=== PATIENT | female | born 1970 | race African-American/Black ===

== ENCOUNTER 2016-05-31 23:54 | Inpatient (IN) | payer OTHER ==
[~2016-05-31] VITALS: Ht 160 cm; Wt 76.1 kg
[~2016-05-31 23:54] MED LIST: ADVAIR HFA120 INHAL1 IH; ADVAIR HFA120 INHALA IH; AMOX TR-K CLV1 EAC3 PO; APRESOLINE25 MG PO; APRESOLINE50 MG PO; ASPIR 8181 M1 PO; ASPIRIN81 M2 PO; ATIVAN1 MG PO; AUGMENTIN500 MG PO; AUGMENTIN875 MG PO; AZITHROMYCIN250 MG1 PO; AZOR 5/20 MG1 TABLET PO; BACTRIM,SEPT1 TABLE1 PO; BACTRIM,SEPT1 TABLET PO; BENADRYL50 MG PO; BENICAR20 MG PO; CALCIUM CARB1 TABLET PO; CARAFATE1 GM PO; CARDURA4 MG PO; CARDURA8 MG PO; CATAPRES0.2 MG PO; CATAPRES0.3 MG PO; CEFUROXIME500 MG PO; CIPRO500 MG PO; CLARITIN,ALAVAR10 MG PO; CLINDAMYCIN HC300 MG PO; CLONIDINE HCL0.1 MG PO; CLONIDINE HCL0.2 MG PO; CLONIDINE HCL0.3 MG PO; COZAAR100 MG PO; CYANOCOBALAM1000 MCG PO; DELTASONE20 M1 PO; DILAUDID2 MG PO; DIPHENHYDRAMINE25 M2 PO; DIPHENHYDRAMINE50 M1 PO; DOXAZOSIN MESYLA8 MG PO; DOXYCYCLINE HY100 M3 PO; DOXYCYCLINE HY100 MG PO; FAMOTIDINE10 M1 PO; FIORICET,ESG1 TABLET PO; FLEXERIL5 MG PO; FLORASTOR250 MG PO; FLUCONAZOLE100 MG PO; FOLIC ACID1 MG PO; FOSRENOL1000 MG PO; GABAPENTIN100 MG PO; GUAIFENESI100 MG/5 M PO; HYDRALAZINE HC100 MG PO; HYDRALAZINE HCL50 MG PO; ISENTRESS400 MG PO; KALETRA 200/501 TAB PO; LABETALOL HCL100 MG PO; LABETALOL HCL200 MG PO; LEVAQUIN500 MG PO; LEVOFLOXACIN500 MG PO; LO-DOSE ASPIRIN81 M1 PO; LOPRESSOR HC1 TABLE2 PO; LOPRESSOR100 M1 PO; LORATADINE10 M2 PO; LOSARTAN POTAS100 MG PO; LOW DOSE ASPIRI81 M1 PO; MEDROL DOSEPAK4 MG PO; MEGACE40 MG PO; MEGESTROL ACETA40 MG PO; MYCOSTATIN 100,60 ML PO; NIFEDICAL XL60 MG PO; NIFEDIPINE ER30 MG PO; NIFEDIPINE ER60 MG PO; NORVIR100 M1 PO; NORVIR100 MG PO; OXYCODONE HCL5 MG PO; OXYCODONE-APAP1 EACH PO; OXYCONTIN15 MG PO; PAIN RELIEF650 MG PO; PANTOPRAZOLE SO40 MG PO; PERCOCET 10/1 TABLET PO; PERCOCET 5/31 TABLET PO; PREDNISONE10 MG PO; PREDNISONE20 MG PO; PREDNISONE50 MG PO; PREZISTA800 MG PO; PROAIR HFA8.5 GM IH; PROCARDIA XL60 MG PO; PROTONIX40 MG PO; PROVENTIL,2.5 MG/3 M IH; REGLAN10 MG PO; RENVELA2.4 GM PO; RENVELA800 MG PO; SENSIPAR90 MG PO; SILDENAFIL20 MG PO; SIMVASTATIN20 MG PO; SPIRIVA RESPIMAT4 GM IH; SUCRALFATE1 GM PO; SUCRALFATE1 GM/10 ML PO; SULFAMETHOXAZO1 EAC4 PO; TEMAZEPAM15 MG PO; TIVICAY50 MG PO; TORADOL10 MG PO; TRAMADOL HCL50 MG PO; TUSSIN100 MG/5 M PO; ULTRAM50 MG PO; VANCOMYCIN HCL1 GM IV; VENTOLIN HFA18 GM IH; VITAMIN B122500 MCG PO; ZOCOR20 MG PO; ZOFRAN4 MG PO; [UNRECOGNIZED DRUG - OTHER] PO
[2016-06-01 01:06] LABS: EOSINOPHIL (%) 0.1 % (0-5); HEMATOCRIT 22.7 % (36.0-46.0); IMMATURE GRANULOCYTE (%) 0.5 % (0.0-0.7); IMMATURE GRANULOCYTE COUNT 0.5 K/uL; MCH 31.1 PG (29.0-34.0); MCHC 32.6 G/DL (30.0-36.0); MCV 95.4 FL (83-99); MEAN PLAT.VOLUME 9.9 uM^3 (9.5-12.4); MONOCYTE (%) 5.7 % (3-12); MONOCYTE COUNT 0.6 K/uL (0-0.8); NEUTROPHIL (%) 83.8 % (45-76); NEUTROPHIL COUNT 8.8 K/uL (1.8-6.4); PLATELET COUNT 176 K/uL (156-360); RBC DIS.WIDTH-SD 62.1 % (39-53); RED BLOOD COUNT 2.38 M/uL (3.80-5.20); WHITE BLOOD COUNT 10.5 K/uL (4.1-10.2)
[2016-06-01 01:14] LABS: CHLORIDE 96 mEq/L (99-109); SODIUM 131 mEq/L (136-147)
[2016-06-01 01:17] LABS: ANION GAP 17 MEQ/L (2-14)
[2016-06-01 01:19] LABS: GFR ESTIMATE (CALCULATED) 8 mL/min/
[2016-06-01 01:20] LABS: UREA NITROGEN (BUN) 97 mg/dL (9-23)
[2016-06-01 01:22] LABS: GLUCOSE 60 mg/dL (70-99)
[2016-06-01 02:00] LABS: INFLUENZA A VIRAL ANTIGEN NEGATIVE; INFLUENZA B VIRAL ANTIGEN NEGATIVE
[2016-06-01 03:15] LABS: POINT-OF-CARE METER ID UU13113702
[2016-06-01 03:26] LABS: TOTAL BILIRUBIN 0.3 mg/dL (0.0-1.0)
[2016-06-01 03:27] LABS: ALKALINE PHOSPHATASE 94 IU/L (3-129)
[2016-06-01 04:08] VITALS: BP 150/90
[2016-06-01 07:00] VITALS: BP 149/79
[2016-06-01 11:47] VITALS: BP 157/75
[2016-06-01 12:16] LABS: ANION GAP 19 MEQ/L (2-14); CHLORIDE 92 MEQ/L (99-109); GFR ESTIMATE (CALCULATED) 8 mL/min/; GLUCOSE 71 mg/dL (70-99); POTASSIUM 5.7 MEQ/L (3.7-5.4); SAMPLE HEMOLYSIS CHECK 0; SAMPLE ICTERIC CHECK 0; SAMPLE LIPEMIA CHECK 0; SODIUM 131 MEQ/L (136-147); UREA NITROGEN (BUN) 99 mg/dL (9-23)
[2016-06-01 15:21] VITALS: BP 140/80
[2016-06-01 15:37] LABS: BASE EXCESS -1.6 mEq/L (-3 to +3); BICARBONATE 22.7 mEq/L (22-26); CARBOXY HGB 2.8 % (0-5); COMMENTS - BLOOD GASES NAC+; DEVICE NC; METHEMOGLOBIN 1.9 % (0-1.5); O2 FLOW 4 L/MIN; PCO2 35 mm Hg (35-45); PO2 106 mm Hg (80-100); SITE RR; TOTAL RESP RATE 23 resp/min; pH 7.42 (7.35-7.45)
[2016-06-02] VITALS (8 sets, daily range): BP systolic 111–186; BP diastolic 53–100
[2016-06-02 03:08] LABS: POINT-OF-CARE USER ID 603211116
[2016-06-02 03:56] LABS: CHLORIDE 93 mEq/L (99-109); POTASSIUM 5.6 mEq/L (3.7-5.4); SODIUM 130 mEq/L (136-147)
[2016-06-02 03:57] LABS: HEMATOCRIT 20.6 % (36.0-46.0); MCH 30.6 PG (29.0-34.0); MCHC 32.5 G/DL (30.0-36.0); MCV 94.1 FL (83-99); MEAN PLAT.VOLUME 9.9 uM^3 (9.5-12.4); PLATELET COUNT 146 K/uL (156-360); RBC DIS.WIDTH-CV 18.6 % (11.8-14.6); RBC DIS.WIDTH-SD 58.9 % (39-53); RED BLOOD COUNT 2.19 M/uL (3.80-5.20); WHITE BLOOD COUNT 11.2 K/uL (4.1-10.2)
[2016-06-02 03:58] LABS: GLUCOSE 66 mg/dL (70-99)
[2016-06-02 04:00] LABS: ANION GAP 20 MEQ/L (2-14)
[2016-06-02 04:02] LABS: GFR ESTIMATE (CALCULATED) 6 mL/min/
[2016-06-02 04:15] LABS: UREA NITROGEN (BUN) 117 mg/dL (9-23)
[2016-06-02 04:37] LABS: TROP-I INTERPRETATION INDETERMINATE; TROPONIN-I 0.43 ng/mL (0.0-0.30)
[2016-06-02 07:58] LABS: BASE EXCESS -2.5 mEq/L (-3 to +3); BICARBONATE 22.5 mEq/L (22-26); PCO2 39 mm Hg (35-45); PO2 74 mm Hg (80-100); pH 7.37 (7.35-7.45)
[2016-06-02 07:59] LABS: COMMENTS - BLOOD GASES +C; DEVICE NC; O2 FLOW 2 L/MIN; SITE RR +A; TOTAL RESP RATE 24 resp/min
[2016-06-02 08:01] LABS: CARBOXY HGB 4.1 % (0-5); METHEMOGLOBIN 1.4 % (0-1.5)
[2016-06-02 09:14] LABS: IRON 13 MCG/DL (35-150)
[2016-06-02 12:31] LABS: POINT-OF-CARE METER ID UU13113681; POINT-OF-CARE USER ID DROKMM72
[2016-06-02 13:01] LABS: TROP-I INTERPRETATION INDETERMINATE; TROPONIN-I 0.46 ng/mL (0.0-0.30)
[2016-06-02 18:39] LABS: HEMATOCRIT 28.7 % (36.0-46.0)
[2016-06-02 18:59] LABS: TROP-I INTERPRETATION INDETERMINATE; TROPONIN-I 0.37 ng/mL (0.0-0.30)
[2016-06-03 03:00] VITALS: BP 145/75
[2016-06-03 08:41] LABS: EOSINOPHIL (%) 0 % (0-5); HEMATOCRIT 24.5 % (36.0-46.0); IMMATURE GRANULOCYTE (%) 0.2 % (0.0-0.7); LYMPHOCYTE COUNT 0.4 K/uL (1.0-2.8); MCH 30.4 PG (29.0-34.0); MCHC 33.9 G/DL (30.0-36.0); MCV 89.7 FL (83-99); MONOCYTE (%) 1.1 % (3-12); MONOCYTE COUNT 0.1 K/uL (0-0.8); NEUTROPHIL COUNT 7.9 K/uL (1.8-6.4); PLATELET COUNT 136 K/uL (156-360); RBC DIS.WIDTH-CV 18.8 % (11.8-14.6); RBC DIS.WIDTH-SD 61.1 % (39-53); WHITE BLOOD COUNT 8.4 K/uL (4.1-10.2)
[2016-06-03 08:42] LABS: RED BLOOD COUNT 2.73 M/uL (3.80-5.20)
[2016-06-03 08:46] LABS: ANION GAP 15 MEQ/L (2-14); CHLORIDE 92 MEQ/L (99-109); SAMPLE HEMOLYSIS CHECK 0; SAMPLE ICTERIC CHECK 0; SAMPLE LIPEMIA CHECK 0; SODIUM 135 MEQ/L (136-147)
[2016-06-03 08:47] LABS: GFR ESTIMATE (CALCULATED) 11 mL/min/; GLUCOSE 154 mg/dL (70-99); POTASSIUM 4.1 MEQ/L (3.7-5.4); UREA NITROGEN (BUN) 48 mg/dL (9-23)
[2016-06-03 13:18] VITALS: BP 130/66
[2016-06-03 17:39] VITALS: BP 142/84
[2016-06-03 19:45] VITALS: BP 113/55
[2016-06-03 23:35] VITALS: BP 113/47
[2016-06-04 04:25] VITALS: BP 127/66
[2016-06-04 06:50] LABS: ANION GAP 15 MEQ/L (2-14); CHLORIDE 91 MEQ/L (99-109); GLUCOSE 156 mg/dL (70-99); POTASSIUM 3.8 MEQ/L (3.7-5.4); SAMPLE HEMOLYSIS CHECK 0; SAMPLE ICTERIC CHECK 0; SAMPLE LIPEMIA CHECK 0; SODIUM 134 MEQ/L (136-147); UREA NITROGEN (BUN) 41 mg/dL (9-23)
[2016-06-04 06:56] LABS: GFR ESTIMATE (CALCULATED) 16 mL/min/
[2016-06-04 08:18] LABS: EOSINOPHIL (%) 0 % (0-5); HEMATOCRIT 25.3 % (36.0-46.0); IMMATURE GRANULOCYTE (%) 0.2 % (0.0-0.7); LYMPHOCYTE COUNT 0.4 K/uL (1.0-2.8); MCH 30.2 PG (29.0-34.0); MCHC 33.2 G/DL (30.0-36.0); MEAN PLAT.VOLUME 10.3 uM^3 (9.5-12.4); MONOCYTE (%) 1.5 % (3-12); MONOCYTE COUNT 0.1 K/uL (0-0.8); NEUTROPHIL (%) 90.7 % (45-76); NEUTROPHIL COUNT 5.3 K/uL (1.8-6.4); RBC DIS.WIDTH-SD 60.1 % (39-53); RED BLOOD COUNT 2.78 M/uL (3.80-5.20)
[2016-06-04 08:19] LABS: PLATELET COUNT 190 K/uL (156-360); WHITE BLOOD COUNT 5.8 K/uL (4.1-10.2)
[2016-06-04 12:36] VITALS: BP 122/58
[2016-06-04 16:36] LABS: APPEARANCE CLEAR/COLORLESS; RED CELL AREA COUNTED 18; RED CELL COUNT 0 /MM^3 (0-1); RED CELL DILUTION 1; WBC DILUTION 1; WHITE CELL RAW COUNT 0
[2016-06-04 16:37] LABS: CSF EOSINOPHILS ND % (0-25); MONO RAW COUNT ND; MONONUCLEAR WBC'S ND % (50-90); POLY RAW COUNT ND; POLYNUCLEAR WBC'S ND % (0-3); WBC AREA COUNTED 18; WHITE CELL COUNT 0 /MM^3 (0-5)
[2016-06-04 17:08] VITALS: BP 155/75
[2016-06-04 19:30] VITALS: BP 145/70
[2016-06-05 00:15] VITALS: BP 140/70
[2016-06-05 03:15] VITALS: BP 148/70
[2016-06-05 07:00] VITALS: BP 160/82
[2016-06-05 07:25] LABS: ANION GAP 19 MEQ/L (2-14); CHLORIDE 89 MEQ/L (99-109); GFR ESTIMATE (CALCULATED) 18 mL/min/; POTASSIUM 3.9 MEQ/L (3.7-5.4); SAMPLE HEMOLYSIS CHECK 0; SAMPLE ICTERIC CHECK 0; SAMPLE LIPEMIA CHECK 0; SODIUM 133 MEQ/L (136-147); UREA NITROGEN (BUN) 40 mg/dL (9-23)
[2016-06-05 07:30] LABS: GLUCOSE 109 mg/dL (70-99)
[2016-06-05 11:00] VITALS: BP 142/72
[2016-06-05 15:00] VITALS: BP 143/74
[2016-06-05 18:09] LABS: HSV CSF Spec Source CSF (())
[2016-06-05 19:45] VITALS: BP 149/78
[2016-06-06] VITALS (7 sets, daily range): BP systolic 130–159; BP diastolic 67–83
[2016-06-06 08:07] LABS: ANION GAP 18 MEQ/L (2-14); CHLORIDE 87 MEQ/L (99-109); POTASSIUM 3.8 MEQ/L (3.7-5.4); SAMPLE HEMOLYSIS CHECK 0; SAMPLE ICTERIC CHECK 0; SAMPLE LIPEMIA CHECK 0; SODIUM 128 MEQ/L (136-147)
[2016-06-06 08:08] LABS: GFR ESTIMATE (CALCULATED) 10 mL/min/; GLUCOSE 211 mg/dL (70-99); UREA NITROGEN (BUN) 79 mg/dL (9-23); VANCOMYCIN, TROUGH 19.6 MCG/ML (10-20)
[2016-06-06 10:19] LABS: HEMATOCRIT 28.7 % (36.0-46.0); MCH 30.1 PG (29.0-34.0); MCHC 33.1 G/DL (30.0-36.0); MCV 90.8 FL (83-99); MEAN PLAT.VOLUME 10.2 uM^3 (9.5-12.4); PLATELET COUNT 209 K/uL (156-360); RBC DIS.WIDTH-CV 17.6 % (11.8-14.6); RBC DIS.WIDTH-SD 58.2 % (39-53); RED BLOOD COUNT 3.16 M/uL (3.80-5.20); WHITE BLOOD COUNT 5.2 K/uL (4.1-10.2)
[2016-06-06 10:23] LABS: EOSINOPHIL (%) 0 % (0-5); IMMATURE GRANULOCYTE (%) 0.8 % (0.0-0.7); LYMPHOCYTE COUNT 0.4 K/uL (1.0-2.8); MONOCYTE (%) 3.1 % (3-12); MONOCYTE COUNT 0.2 K/uL (0-0.8); NEUTROPHIL (%) 89.2 % (45-76); NEUTROPHIL COUNT 4.6 K/uL (1.8-6.4)
[2016-06-07 04:00] VITALS: BP 147/72
[2016-06-07 07:20] VITALS: BP 112/79
[2016-06-07 07:21] LABS: EOSINOPHIL (%) 0 % (0-5); HEMATOCRIT 31.8 % (36.0-46.0); IMMATURE GRANULOCYTE COUNT 0.1 K/uL; LYMPHOCYTE COUNT 0.6 K/uL (1.0-2.8); MCH 29.9 PG (29.0-34.0); MCHC 32.4 G/DL (30.0-36.0); MCV 92.2 FL (83-99); MEAN PLAT.VOLUME 10.2 uM^3 (9.5-12.4); MONOCYTE (%) 5.5 % (3-12); MONOCYTE COUNT 0.5 K/uL (0-0.8); NEUTROPHIL (%) 86.3 % (45-76); NEUTROPHIL COUNT 7.1 K/uL (1.8-6.4); PLATELET COUNT 232 K/uL (156-360); RBC DIS.WIDTH-CV 17.7 % (11.8-14.6); RBC DIS.WIDTH-SD 58.8 % (39-53); RED BLOOD COUNT 3.45 M/uL (3.80-5.20); WHITE BLOOD COUNT 8.2 K/uL (4.1-10.2)
[2016-06-07 07:39] LABS: ANION GAP 15 MEQ/L (2-14); CHLORIDE 92 MEQ/L (99-109); GFR ESTIMATE (CALCULATED) 13 mL/min/; GLUCOSE 133 mg/dL (70-99); POTASSIUM 4.1 MEQ/L (3.7-5.4); SAMPLE HEMOLYSIS CHECK 0; SAMPLE ICTERIC CHECK 0; SAMPLE LIPEMIA CHECK 0; SODIUM 132 MEQ/L (136-147); UREA NITROGEN (BUN) 64 mg/dL (9-23)
[2016-06-07 11:14] VITALS: BP 122/72
[2016-06-07 15:37] VITALS: BP 135/81
[2016-06-07 20:00] VITALS: BP 127/65
[2016-06-07 23:21] VITALS: BP 122/58
[2016-06-08 04:37] VITALS: BP 143/74
[2016-06-08 07:11] LABS: ANION GAP 18 MEQ/L (2-14); CHLORIDE 91 MEQ/L (99-109); GFR ESTIMATE (CALCULATED) 9 mL/min/; GLUCOSE 98 mg/dL (70-99); POTASSIUM 4.4 MEQ/L (3.7-5.4); SAMPLE HEMOLYSIS CHECK 0; SAMPLE ICTERIC CHECK 0; SAMPLE LIPEMIA CHECK 0; SODIUM 131 MEQ/L (136-147); UREA NITROGEN (BUN) 89 mg/dL (9-23)
[2016-06-08 08:57] VITALS: BP 136/82
[2016-06-08 15:04] VITALS: BP 124/68
[2016-06-08 20:10] VITALS: BP 119/69
[2016-06-08 23:39] VITALS: BP 132/72
[2016-06-09 03:50] VITALS: BP 138/76
[2016-06-09 07:15] VITALS: BP 146/71
[2016-06-09 09:49] LABS: EOSINOPHIL (%) 0.3 % (0-5); HEMATOCRIT 28.8 % (36.0-46.0); IMMATURE GRANULOCYTE (%) 1.6 % (0.0-0.7); IMMATURE GRANULOCYTE COUNT 0.2 K/uL; LYMPHOCYTE COUNT 0.9 K/uL (1.0-2.8); MCH 30.8 PG (29.0-34.0); MCV 90.6 FL (83-99); MONOCYTE (%) 6.6 % (3-12); MONOCYTE COUNT 0.7 K/uL (0-0.8); NEUTROPHIL (%) 83.1 % (45-76); NEUTROPHIL COUNT 9.1 K/uL (1.8-6.4); RBC DIS.WIDTH-CV 17.5 % (11.8-14.6); RED BLOOD COUNT 3.18 M/uL (3.80-5.20)
[2016-06-09 09:50] LABS: PLATELET COUNT 307 K/uL (156-360); WHITE BLOOD COUNT 10.9 K/uL (4.1-10.2)
[2016-06-09 10:00] LABS: ANION GAP 17 MEQ/L (2-14); CHLORIDE 89 MEQ/L (99-109); GFR ESTIMATE (CALCULATED) 6 mL/min/; GLUCOSE 155 mg/dL (70-99); POTASSIUM 4.7 MEQ/L (3.7-5.4); SAMPLE HEMOLYSIS CHECK 0; SAMPLE ICTERIC CHECK 0; SAMPLE LIPEMIA CHECK 0; SODIUM 126 MEQ/L (136-147); UREA NITROGEN (BUN) 119 mg/dL (9-23); VANCOMYCIN, TROUGH 21.1 MCG/ML (10-20)
[2016-06-09 14:09] LABS: ANION GAP 14 MEQ/L (2-14); CHLORIDE 92 MEQ/L (99-109); GFR ESTIMATE (CALCULATED) 26 mL/min/; GLUCOSE 77 mg/dL (70-99); POTASSIUM 3.4 MEQ/L (3.7-5.4); SAMPLE HEMOLYSIS CHECK 0; SAMPLE ICTERIC CHECK 0; SAMPLE LIPEMIA CHECK 0; SODIUM 136 MEQ/L (136-147); UREA NITROGEN (BUN) 25 mg/dL (9-23)
[2016-06-09 14:14] VITALS: BP 150/76
[2016-06-09 16:28] VITALS: BP 132/63
[2016-06-09 19:45] VITALS: BP 135/80
[2016-06-10 00:20] VITALS: BP 125/58
[2016-06-10 04:00] VITALS: BP 145/60
[2016-06-10 06:47] VITALS: BP 122/58
[2016-06-10 16:34] VITALS: BP 132/67
[2016-06-10 19:00] VITALS: BP 139/70
[2016-06-11 00:34] VITALS: BP 129/60
[2016-06-11 04:15] VITALS: BP 126/62
[2016-06-11 08:27] LABS: MCH 30.2 PG (29.0-34.0); MCHC 32.8 G/DL (30.0-36.0); MCV 92.1 FL (83-99); MEAN PLAT.VOLUME 9.8 uM^3 (9.5-12.4); NRBC (%) 0.3 /100 WBC (0-0); PLATELET COUNT 265 K/uL (156-360); RBC DIS.WIDTH-CV 19.1 % (11.8-14.6); RBC DIS.WIDTH-SD 58.6 % (39-53); RED BLOOD COUNT 3.15 M/uL (3.80-5.20); WHITE BLOOD COUNT 9.1 K/uL (4.1-10.2)
[2016-06-11 08:34] LABS: EOSINOPHIL COUNT 0.1 K/uL (0-0.3); IMMATURE GRANULOCYTE (%) 1.7 % (0.0-0.7); IMMATURE GRANULOCYTE COUNT 0.2 K/uL; LYMPHOCYTE COUNT 1.1 K/uL (1.0-2.8); MONOCYTE (%) 5.6 % (3-12); MONOCYTE COUNT 0.5 K/uL (0-0.8); NEUTROPHIL (%) 79.8 % (45-76); NEUTROPHIL COUNT 7.2 K/uL (1.8-6.4)
[2016-06-11 08:49] LABS: ALKALINE PHOSPHATASE 92 IU/L (3-129); ANION GAP 21 MEQ/L (2-14); CHLORIDE 91 MEQ/L (99-109); GLUCOSE 76 mg/dL (70-99); SAMPLE HEMOLYSIS CHECK 0; SAMPLE ICTERIC CHECK 0; SAMPLE LIPEMIA CHECK 0; SODIUM 135 MEQ/L (136-147); TOTAL BILIRUBIN 0.4 MG/DL (0.0-1.0)
[2016-06-11 08:50] LABS: GFR ESTIMATE (CALCULATED) 9 mL/min/; POTASSIUM 5.2 MEQ/L (3.7-5.4); UREA NITROGEN (BUN) 65 mg/dL (9-23)
[2016-06-11] MEDS ORDERED: AMOX TR-K CLV1 EAC3 PO (15:31)
[2016-06-11] MEDS ORDERED: AMLODIPINE BESY10 MG PO (15:32)
[2016-06-11] MEDS ORDERED: LOPRESSOR50 MG PO (15:32)
[2016-06-11] MEDS ORDERED: PREDNISONE10 MG PO (15:34)
[2016-06-11 17:21] VITALS: BP 154/73
[2016-06-11 19:15] VITALS: BP 114/64
[2016-06-12 00:04] VITALS: BP 116/57
[2016-06-12 01:56] VITALS: BP 129/60
[2016-06-12 03:10] VITALS: BP 122/65
[2016-06-12 07:22] VITALS: BP 135/69
[2016-06-12 08:26] LABS: EOSINOPHIL (%) 0.4 % (0-5); HEMATOCRIT 29.1 % (36.0-46.0); IMMATURE GRANULOCYTE (%) 1.2 % (0.0-0.7); IMMATURE GRANULOCYTE COUNT 0.1 K/uL; LYMPHOCYTE COUNT 0.5 K/uL (1.0-2.8); MCH 30.3 PG (29.0-34.0); MCV 94.8 FL (83-99); MEAN PLAT.VOLUME 9.4 uM^3 (9.5-12.4); MONOCYTE (%) 3.2 % (3-12); MONOCYTE COUNT 0.2 K/uL (0-0.8); NEUTROPHIL (%) 85.9 % (45-76); NEUTROPHIL COUNT 4.2 K/uL (1.8-6.4); PLATELET COUNT 219 K/uL (156-360); RBC DIS.WIDTH-CV 19.5 % (11.8-14.6); RBC DIS.WIDTH-SD 62.5 % (39-53); RED BLOOD COUNT 3.07 M/uL (3.80-5.20)
[2016-06-12 08:28] LABS: WHITE BLOOD COUNT 4.9 K/uL (4.1-10.2)
[2016-06-12 08:36] LABS: ANION GAP 13 MEQ/L (2-14); CHLORIDE 91 MEQ/L (99-109); POTASSIUM 4.2 MEQ/L (3.7-5.4); SAMPLE HEMOLYSIS CHECK 0; SAMPLE ICTERIC CHECK 0; SAMPLE LIPEMIA CHECK 0; SODIUM 132 MEQ/L (136-147)
[2016-06-12 08:42] LABS: GFR ESTIMATE (CALCULATED) 13 mL/min/; UREA NITROGEN (BUN) 39 mg/dL (9-23)
[2016-06-12 08:44] LABS: GLUCOSE 168 mg/dL (70-99)
[2016-06-12 12:32] VITALS: BP 139/75
[2016-06-12] MEDS ORDERED: TRAMADOL HCL50 MG PO (13:57)
== END 2016-06-12 14:43 | disposition home or self-care (01) | DRG 166 ==
LOC: EME → EDBD 23:54 → EME 23:54 → 4EAST 06-01 02:13 → EDOF 06-01 02:13 → 5SOUTH 06-01 02:13 → 2EAST 06-01 02:13 → 5SOUTH 06-01 03:52 → 4EAST 06-02 17:19 → 2EAST 06-12 01:29
PROVIDERS: Emergency Medicine; Hospitalist; Internal Medicine; Internal Medicine Nephrology; Radiology Diagnostic Radiology
PROC: 30233N1 Transfusion of Nonautologous Red Blood Cells into Peripheral Vein, Percutaneous Approach (ICD-10-PCS; 2016-06-02)
PROC: 5A1D60Z (ICD-10-PCS; 2016-06-02)
PROC: 0B9D8ZX Drainage of Right Middle Lung Lobe, Via Natural or Artificial Opening Endoscopic, Diagnostic (ICD-10-PCS; principal; 2016-06-03)
PROC: 0B9F8ZX Drainage of Right Lower Lung Lobe, Via Natural or Artificial Opening Endoscopic, Diagnostic (ICD-10-PCS; principal; 2016-06-03)
PROC: 009U3ZX Drainage of Spinal Canal, Percutaneous Approach, Diagnostic (ICD-10-PCS; 2016-06-04)
PROC: 02HV33Z Insertion of Infusion Device into Superior Vena Cava, Percutaneous Approach (ICD-10-PCS; 2016-06-11)
PROC: 0DB68ZX Excision of Stomach, Via Natural or Artificial Opening Endoscopic, Diagnostic (ICD-10-PCS; 2016-06-11)
DX: J69.0 Pneumonitis due to inhalation of food and vomit (principal); N18.6 End stage renal disease; B20 Human immunodeficiency virus [HIV] disease; G93.40 Encephalopathy, unspecified; J96.01 Acute respiratory failure with hypoxia; J44.1 Chronic obstructive pulmonary disease with (acute) exacerbation; E87.1 Hypo-osmolality and hyponatremia; I12.0 Hypertensive chronic kidney disease with stage 5 chronic kidney disease or end stage renal disease; R04.2 Hemoptysis; B37.0 Candidal stomatitis; K92.2 Gastrointestinal hemorrhage, unspecified; B59 Pneumocystosis; E87.5 Hyperkalemia; I48.2 Chronic atrial fibrillation; E83.51 Hypocalcemia; Z99.2 Dependence on renal dialysis; E16.2 Hypoglycemia, unspecified; Z91.15 Patient's noncompliance with renal dialysis; Z91.19 Patient's noncompliance with other medical treatment and regimen; E04.2 Nontoxic multinodular goiter; I16.0 Hypertensive urgency; I27.2 Other secondary pulmonary hypertension; I07.1 Rheumatic tricuspid insufficiency; Z87.891 Personal history of nicotine dependence; G47.33 Obstructive sleep apnea (adult) (pediatric); D63.8 Anemia in other chronic diseases classified elsewhere; G43.909 Migraine, unspecified, not intractable, without status migrainosus; I87.8 Other specified disorders of veins; K28.9 Gastrojejunal ulcer, unspecified as acute or chronic, without hemorrhage or perforation; K29.70 Gastritis, unspecified, without bleeding; K29.80 Duodenitis without bleeding
CPT/HCPCS: 36600; 62270; 70450; 71010; 71020; 71250; 74176; 77003; 80048; 80048 91; 80053; 80069; 80202; 81003; 82272; 82803; 82945; 82948; 83540; 83605; 83880; 84100; 84157; 84466; 84484; 85014; 85018; 85025; 85027; 86850; 86900; 86901; 86920; 87040; 87070; 87081; 87102; 87116; 87205; 87206; 87278; 87502; 87529 90; 87801; 87899; 88108; 88305; 88312; 88342 TC; 89051; 93005; 93306; 94640; 94640 76; 94799; 99202; 99281; 99285; B4087; C1769; C1894; C9113; J0456; J0692; J0696; J0881; J1170; J1200; J1450; J1644; J1756; J1940; J2250; J2310; J2405; J2543; J2765; J2930; J3010; J3370; J7030; J7050; J7060; J7512; P9016; S0039

== ENCOUNTER 2016-06-20 19:41 | Inpatient (IN) | payer OTHER ==
[~2016-06-20] VITALS: Ht 160 cm; Wt 68.7 kg
[~2016-06-20 19:41] MED LIST changes: +AMLODIPINE BESY10 MG PO; +LOPRESSOR50 MG PO
[2016-06-20 21:02] LABS: HEMATOCRIT 32.2 % (36.0-46.0); MCH 30.7 PG (29.0-34.0); MCHC 33.2 G/DL (30.0-36.0); MCV 92.5 FL (83-99); MEAN PLAT.VOLUME 9.4 uM^3 (9.5-12.4); PLATELET COUNT 221 K/uL (156-360); RBC DIS.WIDTH-CV 19.2 % (11.8-14.6); RBC DIS.WIDTH-SD 59.8 % (39-53); RED BLOOD COUNT 3.48 M/uL (3.80-5.20); WHITE BLOOD COUNT 5.4 K/uL (4.1-10.2)
[2016-06-20 21:14] LABS: CHLORIDE 87 mEq/L (99-109); POTASSIUM 4.3 mEq/L (3.7-5.4); SODIUM 131 mEq/L (136-147)
[2016-06-20 21:15] LABS: GLUCOSE 83 mg/dL (70-99)
[2016-06-20 21:17] LABS: ANION GAP 18 MEQ/L (2-14)
[2016-06-20 21:19] LABS: GFR ESTIMATE (CALCULATED) 6 mL/min/
[2016-06-20 21:20] LABS: UREA NITROGEN (BUN) 49 mg/dL (9-23)
[2016-06-20] MEDS ORDERED: AMOX TR-K CLV1 EAC3 PO (22:53)
[2016-06-20] MEDS ORDERED: LABETALOL HCL200 MG PO (22:54)
[2016-06-20] MEDS ORDERED: NIFEDIPINE ER30 MG PO (22:55)
[2016-06-20] MEDS ORDERED: TRAMADOL HCL50 MG PO (23:03)
[2016-06-21] VITALS (8 sets, daily range): BP systolic 126–179; BP diastolic 74–98
[2016-06-21 00:32] LABS: INFLUENZA A VIRAL ANTIGEN NEGATIVE; INFLUENZA B VIRAL ANTIGEN NEGATIVE
[2016-06-21 10:24] LABS: HEMATOCRIT 28.1 % (36.0-46.0); MCH 30.1 PG (29.0-34.0); MCHC 32.7 G/DL (30.0-36.0); MCV 91.8 FL (83-99); MEAN PLAT.VOLUME 9.3 uM^3 (9.5-12.4); NRBC (%) 0.9 /100 WBC (0-0); PLATELET COUNT 180 K/uL (156-360); RBC DIS.WIDTH-CV 19.2 % (11.8-14.6); RBC DIS.WIDTH-SD 62.2 % (39-53); RED BLOOD COUNT 3.06 M/uL (3.80-5.20)
[2016-06-21 10:29] LABS: EOSINOPHIL (%) 3.5 % (0-5); EOSINOPHIL COUNT 0.1 K/uL (0-0.3); IMMATURE GRANULOCYTE (%) 0.2 % (0.0-0.7); MONOCYTE (%) 7.7 % (3-12); MONOCYTE COUNT 0.3 K/uL (0-0.8); NEUTROPHIL COUNT 2.5 K/uL (1.8-6.4)
[2016-06-21 10:45] LABS: ANION GAP 16 MEQ/L (2-14); CHLORIDE 88 MEQ/L (99-109); GFR ESTIMATE (CALCULATED) 5 mL/min/; POTASSIUM 3.9 MEQ/L (3.7-5.4); SAMPLE HEMOLYSIS CHECK 0; SAMPLE ICTERIC CHECK 0; SAMPLE LIPEMIA CHECK 0; SODIUM 129 MEQ/L (136-147); UREA NITROGEN (BUN) 54 mg/dL (9-23)
[2016-06-21 10:48] LABS: GLUCOSE 132 mg/dL (70-99)
[2016-06-22 03:30] VITALS: BP 118/63
[2016-06-22 06:16] LABS: HEMATOCRIT 29.6 % (36.0-46.0); MCHC 31.4 G/DL (30.0-36.0); MCV 95.5 FL (83-99); MEAN PLAT.VOLUME 9.3 uM^3 (9.5-12.4); PLATELET COUNT 157 K/uL (156-360); RBC DIS.WIDTH-CV 20.1 % (11.8-14.6); RBC DIS.WIDTH-SD 66.8 % (39-53); WHITE BLOOD COUNT 3.1 K/uL (4.1-10.2)
[2016-06-22 06:52] LABS: ANION GAP 9 MEQ/L (2-14); CHLORIDE 91 MEQ/L (99-109); POTASSIUM 3.8 MEQ/L (3.7-5.4); SAMPLE HEMOLYSIS CHECK 0; SAMPLE ICTERIC CHECK 0; SAMPLE LIPEMIA CHECK 0; SODIUM 134 MEQ/L (136-147)
[2016-06-22 07:04] LABS: GFR ESTIMATE (CALCULATED) 11 mL/min/; GLUCOSE 88 mg/dL (70-99); UREA NITROGEN (BUN) 26 mg/dL (9-23)
[2016-06-22 08:32] VITALS: BP 124/68
[2016-06-22 11:14] VITALS: BP 102/52
[2016-06-22 16:38] VITALS: BP 110/58
[2016-06-22 20:30] VITALS: BP 125/60
[2016-06-22 22:58] VITALS: BP 141/75
[2016-06-23 02:31] VITALS: BP 118/57
[2016-06-23 08:12] LABS: HEMATOCRIT 27.3 % (36.0-46.0); MCH 30.3 PG (29.0-34.0); MCHC 32.2 G/DL (30.0-36.0); MCV 94.1 FL (83-99); PLATELET COUNT 169 K/uL (156-360); RBC DIS.WIDTH-CV 19.9 % (11.8-14.6); WHITE BLOOD COUNT 3.7 K/uL (4.1-10.2)
[2016-06-23 08:35] LABS: ANION GAP 13 MEQ/L (2-14); CHLORIDE 91 MEQ/L (99-109); GLUCOSE 103 mg/dL (70-99); POTASSIUM 4.2 MEQ/L (3.7-5.4); SAMPLE HEMOLYSIS CHECK 0; SAMPLE ICTERIC CHECK 0; SAMPLE LIPEMIA CHECK 0; SODIUM 132 MEQ/L (136-147)
[2016-06-23 08:36] LABS: GFR ESTIMATE (CALCULATED) 8 mL/min/; UREA NITROGEN (BUN) 44 mg/dL (9-23)
[2016-06-23 12:26] VITALS: BP 117/63
[2016-06-23 16:59] VITALS: BP 104/56
[2016-06-23 20:06] VITALS: BP 101/54
[2016-06-24 08:05] VITALS: BP 140/74
[2016-06-24 10:38] LABS: EOSINOPHIL (%) 3.8 % (0-5); EOSINOPHIL COUNT 0.2 K/uL (0-0.3); HEMATOCRIT 28.4 % (36.0-46.0); IMMATURE GRANULOCYTE (%) 0.4 % (0.0-0.7); LYMPHOCYTE COUNT 1.7 K/uL (1.0-2.8); MCH 30.6 PG (29.0-34.0); MCHC 32.4 G/DL (30.0-36.0); MCV 94.4 FL (83-99); MEAN PLAT.VOLUME 9.7 uM^3 (9.5-12.4); MONOCYTE (%) 9.7 % (3-12); MONOCYTE COUNT 0.5 K/uL (0-0.8); NEUTROPHIL (%) 51.9 % (45-76); NEUTROPHIL COUNT 2.6 K/uL (1.8-6.4); PLATELET COUNT 161 K/uL (156-360); RBC DIS.WIDTH-CV 20.3 % (11.8-14.6); RBC DIS.WIDTH-SD 68.8 % (39-53); RED BLOOD COUNT 3.01 M/uL (3.80-5.20)
[2016-06-24 10:52] LABS: ANION GAP 11 MEQ/L (2-14); CHLORIDE 91 MEQ/L (99-109); GFR ESTIMATE (CALCULATED) 10 mL/min/; GLUCOSE 72 mg/dL (70-99); POTASSIUM 4.3 MEQ/L (3.7-5.4); SAMPLE HEMOLYSIS CHECK 0; SAMPLE ICTERIC CHECK 0; SAMPLE LIPEMIA CHECK 0; SODIUM 131 MEQ/L (136-147); UREA NITROGEN (BUN) 34 mg/dL (9-23)
[2016-06-24] MEDS ORDERED: MYCOSTATIN 100,60 ML PO (11:26)
[2016-06-24] MEDS ORDERED: BUTALB-APAP-CA1 EACH PO (11:26)
[2016-06-24] MEDS ORDERED: AZITHROMYCIN250 MG1 PO (11:30)
== END 2016-06-24 14:20 | disposition home health service (06) | DRG 974 ==
LOC: EME 19:41 → 5EAST 22:52 → EDOF 22:52 → 5EAST 23:54
PROVIDERS: Emergency Medicine; Hospitalist; Internal Medicine Nephrology
PROC: 5A1D60Z (ICD-10-PCS; principal; 2016-06-21)
DX: B20 Human immunodeficiency virus [HIV] disease (principal); J18.9 Pneumonia, unspecified organism; N18.6 End stage renal disease; N17.9 Acute kidney failure, unspecified; I12.0 Hypertensive chronic kidney disease with stage 5 chronic kidney disease or end stage renal disease; J44.1 Chronic obstructive pulmonary disease with (acute) exacerbation; E87.1 Hypo-osmolality and hyponatremia; Z91.15 Patient's noncompliance with renal dialysis; I48.2 Chronic atrial fibrillation; I27.2 Other secondary pulmonary hypertension; E87.70 Fluid overload, unspecified; G43.909 Migraine, unspecified, not intractable, without status migrainosus; F17.210 Nicotine dependence, cigarettes, uncomplicated; E66.9 Obesity, unspecified; Z68.26 Body mass index [BMI] 26.0-26.9, adult; Z99.2 Dependence on renal dialysis; Z88.5 Allergy status to narcotic agent; Z82.49 Family history of ischemic heart disease and other diseases of the circulatory system
CPT/HCPCS: 71020; 80048; 80069; 83605; 85025; 85027; 87040; 87449; 87502; 94640; 94640 76; 94799; 99202; 99281; 99285; J0456; J0692; J1200; J1644; J2405; J3010; J3370; J7050

== ENCOUNTER 2016-06-28 13:01 | Emergency (ER) | payer OTHER ==
[~2016-06-28] VITALS: Ht 160 cm; Wt 69.1 kg
[~2016-06-28 13:01] MED LIST changes: +BUTALB-APAP-CA1 EACH PO
[2016-06-28 14:50] LABS: EOSINOPHIL (%) 0.3 % (0-5); HEMATOCRIT 30.5 % (36.0-46.0); IMMATURE GRANULOCYTE (%) 0.3 % (0.0-0.7); IMMATURE GRANULOCYTE COUNT 0.2 K/uL; LYMPHOCYTE COUNT 2.2 K/uL (1.0-2.8); MCHC 33.1 G/DL (30.0-36.0); MCV 93.6 FL (83-99); MEAN PLAT.VOLUME 9.9 uM^3 (9.5-12.4); MONOCYTE (%) 14.9 % (3-12); MONOCYTE COUNT 1.1 K/uL (0-0.8); NEUTROPHIL (%) 54.2 % (45-76); PLATELET COUNT 229 K/uL (156-360); RBC DIS.WIDTH-CV 19.2 % (11.8-14.6); RBC DIS.WIDTH-SD 62.5 % (39-53); RED BLOOD COUNT 3.26 M/uL (3.80-5.20); WHITE BLOOD COUNT 7.4 K/uL (4.1-10.2)
[2016-06-28 15:00] LABS: CHLORIDE 86 mEq/L (99-109); POTASSIUM 3.7 mEq/L (3.7-5.4); SODIUM 133 mEq/L (136-147)
[2016-06-28 15:02] LABS: GLUCOSE 91 mg/dL (70-99)
[2016-06-28 15:03] LABS: ANION GAP 18 MEQ/L (2-14)
[2016-06-28 15:04] LABS: TOTAL BILIRUBIN 0.7 mg/dL (0.0-1.0)
[2016-06-28 15:06] LABS: ALKALINE PHOSPHATASE 131 IU/L (3-129); GFR ESTIMATE (CALCULATED) 8 mL/min/
[2016-06-28 15:07] LABS: UREA NITROGEN (BUN) 32 mg/dL (9-23)
[2016-06-28 15:31] LABS: INFLUENZA A VIRAL ANTIGEN NEGATIVE; INFLUENZA B VIRAL ANTIGEN NEGATIVE
[2016-06-28 16:07] LABS: INTERNAL CONTROL VALID? YES; MONOSPOT (MONONUCLEOSIS SEROL) NEGATIVE
[2016-06-28] MEDS ORDERED: ZITHROMAX500 MG PO (21:01)
[2016-06-28] MEDS ORDERED: CEFTIN500 MG PO (21:01)
[2016-06-28] MEDS ORDERED: DILAUDID2 MG PO (21:01)
[2016-06-28 21:32] VITALS: BP 148/95
== END 2016-06-28 21:37 | disposition home or self-care (01) ==
LOC: EME 13:01
PROVIDERS: Emergency Medicine
DX: R50.9 Fever, unspecified (principal); M79.1 Myalgia; J40 Bronchitis, not specified as acute or chronic; R51 Headache; B20 Human immunodeficiency virus [HIV] disease; I12.0 Hypertensive chronic kidney disease with stage 5 chronic kidney disease or end stage renal disease; N18.6 End stage renal disease; Z99.2 Dependence on renal dialysis; Z87.891 Personal history of nicotine dependence; Z88.1 Allergy status to other antibiotic agents; Z88.5 Allergy status to narcotic agent; Z88.8 Allergy status to other drugs, medicaments and biological substances
CPT/HCPCS: 70450; 71010; 80053; 83605; 85025; 86308; 87040; 87502; 99281; 99285; J1100; J1170; J2765

== ENCOUNTER 2016-07-06 00:37 | Inpatient (IN) | payer OTHER ==
[~2016-07-06] VITALS: Ht 160 cm; Wt 66.0 kg
[~2016-07-06 00:37] MED LIST changes: +CEFTIN500 MG PO; +ZITHROMAX500 MG PO
[2016-07-06 01:34] LABS: HEMATOCRIT 33.4 % (36.0-46.0); MCH 29.9 PG (29.0-34.0); MCHC 32.6 G/DL (30.0-36.0); MCV 91.8 FL (83-99); RBC DIS.WIDTH-CV 18.9 % (11.8-14.6); RBC DIS.WIDTH-SD 60.7 % (39-53); RED BLOOD COUNT 3.64 M/uL (3.80-5.20); WHITE BLOOD COUNT 6.3 K/uL (4.1-10.2)
[2016-07-06 01:35] LABS: MEAN PLAT.VOLUME 9.5 uM^3 (9.5-12.4); PLATELET COUNT 331 K/uL (156-360)
[2016-07-06 01:48] LABS: CHLORIDE 86 mEq/L (99-109); POTASSIUM 3.5 mEq/L (3.7-5.4); SODIUM 135 mEq/L (136-147)
[2016-07-06 01:49] LABS: GLUCOSE 88 mg/dL (70-99)
[2016-07-06 01:51] LABS: ANION GAP 20 MEQ/L (2-14)
[2016-07-06 01:53] LABS: GFR ESTIMATE (CALCULATED) 9 mL/min/
[2016-07-06 01:54] LABS: TROP-I INTERPRETATION NEGATIVE; TROPONIN-I 0.11 ng/mL (0.0-0.30); UREA NITROGEN (BUN) 25 mg/dL (9-23)
[2016-07-06 02:35] LABS: INFLUENZA A VIRAL ANTIGEN NEGATIVE; INFLUENZA B VIRAL ANTIGEN NEGATIVE
[2016-07-06 10:42] VITALS: BP 174/89
[2016-07-06 10:43] VITALS: BP 174/89
[2016-07-06 13:06] LABS: TROP-I INTERPRETATION NEGATIVE; TROPONIN-I 0.09 ng/mL (0.0-0.30)
[2016-07-06 18:00] VITALS: BP 151/76
[2016-07-06 18:27] LABS: TROP-I INTERPRETATION NEGATIVE; TROPONIN-I 0.11 ng/mL (0.0-0.30)
[2016-07-06 19:47] VITALS: BP 154/73
[2016-07-07] VITALS (7 sets, daily range): BP systolic 121–157; BP diastolic 60–83
[2016-07-07 08:15] LABS: HEMATOCRIT 27.4 % (36.0-46.0); MCH 29.9 PG (29.0-34.0); MCHC 33.2 G/DL (30.0-36.0); MCV 90.1 FL (83-99); MEAN PLAT.VOLUME 9.9 uM^3 (9.5-12.4); PLATELET COUNT 277 K/uL (156-360); RBC DIS.WIDTH-CV 18.8 % (11.8-14.6); RBC DIS.WIDTH-SD 61.8 % (39-53); RED BLOOD COUNT 3.04 M/uL (3.80-5.20); WHITE BLOOD COUNT 5.2 K/uL (4.1-10.2)
[2016-07-07 08:34] LABS: EOSINOPHIL (%) 1.9 % (0-5); EOSINOPHIL COUNT 0.1 K/uL (0-0.3); IMMATURE GRANULOCYTE (%) 0.4 % (0.0-0.7); LYMPHOCYTE COUNT 1.5 K/uL (1.0-2.8); MONOCYTE (%) 9.8 % (3-12); MONOCYTE COUNT 0.5 K/uL (0-0.8); NEUTROPHIL (%) 58.7 % (45-76); NEUTROPHIL COUNT 3.1 K/uL (1.8-6.4)
[2016-07-07 08:36] LABS: ANION GAP 15 MEQ/L (2-14); CHLORIDE 89 MEQ/L (99-109); GFR ESTIMATE (CALCULATED) 7 mL/min/; GLUCOSE 137 mg/dL (70-99); POTASSIUM 3.8 MEQ/L (3.7-5.4); SAMPLE HEMOLYSIS CHECK 0; SAMPLE ICTERIC CHECK 0; SAMPLE LIPEMIA CHECK 0; SODIUM 132 MEQ/L (136-147); UREA NITROGEN (BUN) 44 mg/dL (9-23)
[2016-07-08 08:02] VITALS: BP 177/86
[2016-07-08 08:58] LABS: HEMATOCRIT 26.6 % (36.0-46.0); MCH 29.3 PG (29.0-34.0); MCHC 32.3 G/DL (30.0-36.0); MCV 90.5 FL (83-99); MEAN PLAT.VOLUME 10.1 uM^3 (9.5-12.4); PLATELET COUNT 243 K/uL (156-360); RBC DIS.WIDTH-CV 18.9 % (11.8-14.6); RBC DIS.WIDTH-SD 62.2 % (39-53); RED BLOOD COUNT 2.94 M/uL (3.80-5.20); WHITE BLOOD COUNT 5.7 K/uL (4.1-10.2)
[2016-07-08 09:15] LABS: EOSINOPHIL (%) 1.2 % (0-5); EOSINOPHIL COUNT 0.1 K/uL (0-0.3); IMMATURE GRANULOCYTE (%) 0.5 % (0.0-0.7); LYMPHOCYTE COUNT 1.9 K/uL (1.0-2.8); MONOCYTE (%) 9.1 % (3-12); MONOCYTE COUNT 0.5 K/uL (0-0.8); NEUTROPHIL (%) 56.4 % (45-76); NEUTROPHIL COUNT 3.2 K/uL (1.8-6.4)
[2016-07-08 09:33] LABS: ANION GAP 13 MEQ/L (2-14); CHLORIDE 92 MEQ/L (99-109); POTASSIUM 4.1 MEQ/L (3.7-5.4); SAMPLE HEMOLYSIS CHECK 0; SAMPLE ICTERIC CHECK 0; SAMPLE LIPEMIA CHECK 0; SODIUM 129 MEQ/L (136-147); UREA NITROGEN (BUN) 36 mg/dL (9-23)
[2016-07-08 09:34] LABS: GFR ESTIMATE (CALCULATED) 10 mL/min/; GLUCOSE 221 mg/dL (70-99); VANCOMYCIN, TROUGH 13.5 MCG/ML (10-20)
[2016-07-08 16:33] VITALS: BP 110/59
[2016-07-08 22:42] VITALS: BP 116/60
[2016-07-09 08:39] LABS: HEMATOCRIT 25.6 % (36.0-46.0); MCH 28.8 PG (29.0-34.0); MCHC 32.4 G/DL (30.0-36.0); MCV 88.9 FL (83-99); MEAN PLAT.VOLUME 9.4 uM^3 (9.5-12.4); PLATELET COUNT 273 K/uL (156-360); RBC DIS.WIDTH-CV 18.7 % (11.8-14.6); RBC DIS.WIDTH-SD 61.1 % (39-53); RED BLOOD COUNT 2.88 M/uL (3.80-5.20); WHITE BLOOD COUNT 5.2 K/uL (4.1-10.2)
[2016-07-09 08:49] LABS: ANION GAP 13 MEQ/L (2-14); CHLORIDE 89 MEQ/L (99-109); POTASSIUM 4.7 MEQ/L (3.7-5.4); SAMPLE HEMOLYSIS CHECK 0; SAMPLE ICTERIC CHECK 0; SAMPLE LIPEMIA CHECK 0; SODIUM 125 MEQ/L (136-147)
[2016-07-09 08:59] LABS: GFR ESTIMATE (CALCULATED) 7 mL/min/; UREA NITROGEN (BUN) 53 mg/dL (9-23)
[2016-07-09 09:00] LABS: GLUCOSE 115 mg/dL (70-99)
[2016-07-09 09:04] LABS: EOSINOPHIL (%) 1.5 % (0-5); EOSINOPHIL COUNT 0.1 K/uL (0-0.3); IMMATURE GRANULOCYTE (%) 0.4 % (0.0-0.7); LYMPHOCYTE COUNT 1.5 K/uL (1.0-2.8); MONOCYTE (%) 11.1 % (3-12); MONOCYTE COUNT 0.6 K/uL (0-0.8); NEUTROPHIL (%) 57.2 % (45-76)
[2016-07-09 09:41] LABS: HIV RNA QUANT LOG10 RESULT < 1.30 Log(10) (<1.30); HIV RNA QUANT VIRAL LOAD < 20 copy/mL (<20)
[2016-07-09] MEDS ORDERED: DILAUDID2 MG PO (11:22)
[2016-07-09] MEDS ORDERED: NORVASC10 MG PO (14:16)
[2016-07-09] MEDS ORDERED: LOPRESSOR50 MG PO (14:17)
[2016-07-09 17:07] VITALS: BP 111/55
== END 2016-07-09 17:52 | disposition home or self-care (01) | DRG 190 ==
LOC: EME 00:37 → EDOF 05:12 → 5EAST 05:12 → 4EAST 09:47 → 5EAST 07-07 17:59
PROVIDERS: Emergency Medicine; Hospitalist; Internal Medicine; Internal Medicine Infectious Disease; Student in an Organized Health Care Education/Training Program
PROC: 5A1D60Z (ICD-10-PCS; principal; 2016-07-07)
DX: J44.0 Chronic obstructive pulmonary disease with (acute) lower respiratory infection (principal); J18.9 Pneumonia, unspecified organism; Y95 Nosocomial condition; J44.1 Chronic obstructive pulmonary disease with (acute) exacerbation; B20 Human immunodeficiency virus [HIV] disease; I12.0 Hypertensive chronic kidney disease with stage 5 chronic kidney disease or end stage renal disease; N18.6 End stage renal disease; Z99.2 Dependence on renal dialysis; Z91.19 Patient's noncompliance with other medical treatment and regimen; D63.1 Anemia in chronic kidney disease; D63.8 Anemia in other chronic diseases classified elsewhere; G47.33 Obstructive sleep apnea (adult) (pediatric); I27.2 Other secondary pulmonary hypertension; I05.9 Rheumatic mitral valve disease, unspecified; I48.91 Unspecified atrial fibrillation; K21.9 Gastro-esophageal reflux disease without esophagitis; G43.909 Migraine, unspecified, not intractable, without status migrainosus; F17.200 Nicotine dependence, unspecified, uncomplicated
CPT/HCPCS: 70450; 71020; 80048; 80202; 83605; 84484; 85025; 85027; 87040; 87070; 87205; 87449; 87502; 87536; 93005; 94640; 94640 76; 99202; 99281; 99285; J0360; J0456; J0692; J0881; J1200; J1644; J1885; J2543; J2765; J3370; J7030; J7050

== ENCOUNTER 2016-07-13 12:56 | Emergency (ER) | payer OTHER ==
[~2016-07-13] VITALS: Ht 160 cm; Wt 68.9 kg
[~2016-07-13 12:56] MED LIST changes: +NORVASC10 MG PO
[2016-07-13 15:01] LABS: HEMATOCRIT 27.1 % (36.0-46.0); MCH 29.3 PG (29.0-34.0); MCHC 32.8 G/DL (30.0-36.0); MCV 89.1 FL (83-99); MEAN PLAT.VOLUME 9.4 uM^3 (9.5-12.4); PLATELET COUNT 313 K/uL (156-360); RBC DIS.WIDTH-CV 18.2 % (11.8-14.6); RBC DIS.WIDTH-SD 56.9 % (39-53); RED BLOOD COUNT 3.04 M/uL (3.80-5.20)
[2016-07-13 15:03] LABS: EOSINOPHIL (%) 0.3 % (0-5); IMMATURE GRANULOCYTE (%) 0.1 % (0.0-0.7); IMMATURE GRANULOCYTE COUNT 0.1 K/uL; LYMPHOCYTE COUNT 2.4 K/uL (1.0-2.8); MONOCYTE (%) 15.1 % (3-12); NEUTROPHIL COUNT 3.3 K/uL (1.8-6.4)
[2016-07-13 15:04] LABS: WHITE BLOOD COUNT 6.8 K/uL (4.1-10.2)
[2016-07-13 15:09] LABS: CHLORIDE 84 mEq/L (99-109); POTASSIUM 4.7 mEq/L (3.7-5.4); SODIUM 127 mEq/L (136-147)
[2016-07-13 15:11] LABS: GLUCOSE 70 mg/dL (70-99)
[2016-07-13 15:13] LABS: ANION GAP 17 MEQ/L (2-14); TOTAL BILIRUBIN 0.3 mg/dL (0.0-1.0)
[2016-07-13 15:15] LABS: ALKALINE PHOSPHATASE 139 IU/L (3-129); GFR ESTIMATE (CALCULATED) 8 mL/min/
[2016-07-13 15:16] LABS: UREA NITROGEN (BUN) 36 mg/dL (9-23)
[2016-07-13 15:25] LABS: TROP-I INTERPRETATION NEGATIVE; TROPONIN-I 0.06 ng/mL (0.0-0.30)
[2016-07-13 17:59] LABS: TROP-I INTERPRETATION NEGATIVE; TROPONIN-I 0.04 ng/mL (0.0-0.30)
[2016-07-13 18:40] VITALS: BP 160/85
== END 2016-07-13 18:47 | disposition home or self-care (01) ==
LOC: EME 12:56
PROVIDERS: Emergency Medicine
DX: R07.89 Other chest pain (principal); N19 Unspecified kidney failure; I10 Essential (primary) hypertension; Z99.2 Dependence on renal dialysis; Z21 Asymptomatic human immunodeficiency virus [HIV] infection status; Z88.6 Allergy status to analgesic agent; Z87.891 Personal history of nicotine dependence
CPT/HCPCS: 71020; 80053; 83605; 84484; 85025; 87040; 93005; 94644; 99281; 99284; J1170; J1200; J2765; J2930

== ENCOUNTER → 2016-07-29 | Outpatient (CLI) | payer OTHER | END | disposition home or self-care (01) | LOC: NUC 08:30 | DX: R94.31 Abnormal electrocardiogram [ECG] [EKG] (principal); R07.9 Chest pain, unspecified; R06.02 Shortness of breath; I33.9 Acute and subacute endocarditis, unspecified; I27.2 Other secondary pulmonary hypertension; N18.5 Chronic kidney disease, stage 5; I12.0 Hypertensive chronic kidney disease with stage 5 chronic kidney disease or end stage renal disease | CPT/HCPCS: 78452; 93017; A9500; J2785 ==

== ENCOUNTER 2016-10-12 17:46 | Inpatient (IN) | payer OTHER ==
[~2016-10-12] VITALS: Ht 160 cm; Wt 80.0 kg
[2016-10-12 18:53] LABS: HEMATOCRIT 27.1 % (36.0-46.0); MCH 30.3 PG (29.0-34.0); MCHC 32.1 G/DL (30.0-36.0); MCV 94.4 FL (83-99); NRBC (%) 0.5 /100 WBC (0-0); RBC DIS.WIDTH-CV 22.7 % (11.8-14.6); RBC DIS.WIDTH-SD 75.3 % (39-53); RED BLOOD COUNT 2.87 M/uL (3.80-5.20); WHITE BLOOD COUNT 8.9 K/uL (4.1-10.2)
[2016-10-12 19:52] LABS: MEAN PLAT.VOLUME 11.1 uM^3 (9.5-12.4); PLAT.SUFFICIENCY DECREASED; PLATELET COUNT 55 K/uL (156-360)
[2016-10-12 20:12] LABS: CHLORIDE 92 mEq/L (99-109); POTASSIUM 3.9 mEq/L (3.7-5.4); SODIUM 134 mEq/L (136-147)
[2016-10-12 20:13] LABS: GLUCOSE 109 mg/dL (70-99)
[2016-10-12 20:15] LABS: ANION GAP 13 MEQ/L (2-14)
[2016-10-12 20:17] LABS: GFR ESTIMATE (CALCULATED) 11 mL/min/
[2016-10-12 20:18] LABS: UREA NITROGEN (BUN) 51 mg/dL (9-23)
[2016-10-12] MEDS ORDERED: CLONIDINE HCL0.1 MG PO (21:37)
[2016-10-12] MEDS ORDERED: PERCOCET 10/1 TABLET PO (21:38)
[2016-10-12] MEDS ORDERED: ROXICODONE5 MG PO (21:39)
[2016-10-13 00:19] LABS: TROP-I INTERPRETATION INDETERMINATE; TROPONIN-I 0.45 ng/mL (0.0-0.30)
[2016-10-13 00:34] VITALS: BP 164/85
[2016-10-13 06:37] LABS: CHLORIDE 94 mEq/L (99-109)
[2016-10-13 06:38] LABS: SODIUM 134 mEq/L (136-147)
[2016-10-13 06:39] LABS: GLUCOSE 111 mg/dL (70-99)
[2016-10-13 06:41] LABS: ANION GAP 14 MEQ/L (2-14)
[2016-10-13 06:41] LABS: HEMATOCRIT 28.6 % (36.0-46.0); MCH 29.9 PG (29.0-34.0); MCHC 30.4 G/DL (30.0-36.0); MCV 98.3 FL (83-99); MEAN PLAT.VOLUME 10.3 uM^3 (9.5-12.4); NRBC (%) 0.2 /100 WBC (0-0); PLATELET COUNT 114 K/uL (156-360); RBC DIS.WIDTH-CV 22.7 % (11.8-14.6); RBC DIS.WIDTH-SD 80.8 % (39-53); RED BLOOD COUNT 2.91 M/uL (3.80-5.20); WHITE BLOOD COUNT 11.2 K/uL (4.1-10.2)
[2016-10-13 06:42] LABS: EOSINOPHIL (%) 0.5 % (0-5); EOSINOPHIL COUNT 0.1 K/uL (0-0.3); IMMATURE GRANULOCYTE (%) 0.8 % (0.0-0.7); IMMATURE GRANULOCYTE COUNT 0.1 K/uL; INSTRUMENT ABS NEUTROPHIL CT 9.8 K/uL; LYMPHOCYTE COUNT 0.8 K/uL (1.0-2.8); MONOCYTE (%) 4.3 % (3-12); MONOCYTE COUNT 0.5 K/uL (0-0.8); NEUTROPHIL (%) 87.2 % (45-76); NEUTROPHIL COUNT 9.8 K/uL (1.8-6.4)
[2016-10-13 06:43] LABS: GFR ESTIMATE (CALCULATED) 9 mL/min/
[2016-10-13 06:44] LABS: UREA NITROGEN (BUN) 59 mg/dL (9-23)
[2016-10-13 06:44] LABS: TROP-I INTERPRETATION INDETERMINATE; TROPONIN-I 0.54 ng/mL (0.0-0.30)
[2016-10-13 06:58] VITALS: BP 146/70
[2016-10-13 11:17] LABS: AHBS INDEX 7.18; HBSG INDEX 0.22; HEPATITIS B SURFACE ANTIBODY Nonreactive
[2016-10-13 11:52] LABS: TROP-I INTERPRETATION INDETERMINATE; TROPONIN-I 0.41 ng/mL (0.0-0.30)
[2016-10-13 23:33] VITALS: BP 111/59
[2016-10-14 03:11] VITALS: BP 134/63
[2016-10-14 07:30] VITALS: BP 126/67
[2016-10-14 08:47] LABS: ANION GAP 9 MEQ/L (2-14); CHLORIDE 94 MEQ/L (99-109); SAMPLE HEMOLYSIS CHECK 0; SAMPLE ICTERIC CHECK 0; SAMPLE LIPEMIA CHECK 0; SODIUM 134 MEQ/L (136-147)
[2016-10-14 08:52] LABS: EOSINOPHIL COUNT 0.1 K/uL (0-0.3); HEMATOCRIT 22.5 % (36.0-46.0); IMMATURE GRANULOCYTE (%) 0.4 % (0.0-0.7); INSTRUMENT ABS NEUTROPHIL CT 6.4 K/uL; LYMPHOCYTE COUNT 0.5 K/uL (1.0-2.8); MCH 29.9 PG (29.0-34.0); MCHC 31.1 G/DL (30.0-36.0); MCV 96.2 FL (83-99); MEAN PLAT.VOLUME 10.4 uM^3 (9.5-12.4); MONOCYTE (%) 4.6 % (3-12); MONOCYTE COUNT 0.3 K/uL (0-0.8); NEUTROPHIL (%) 87.1 % (45-76); NEUTROPHIL COUNT 6.4 K/uL (1.8-6.4); PLATELET COUNT 90 K/uL (156-360); RBC DIS.WIDTH-SD 74.7 % (39-53); RED BLOOD COUNT 2.34 M/uL (3.80-5.20)
[2016-10-14 08:53] LABS: GFR ESTIMATE (CALCULATED) 11 mL/min/; GLUCOSE 113 mg/dL (70-99); UREA NITROGEN (BUN) 40 mg/dL (9-23)
[2016-10-14 09:16] LABS: WHITE BLOOD COUNT 7.4 K/uL (4.1-10.2)
[2016-10-14 10:00] LABS: VANCOMYCIN, TROUGH 20.6 MCG/ML (10-20)
[2016-10-14 12:33] LABS: HEMATOCRIT 26.8 % (36.0-46.0); MCV 96.4 FL (83-99)
[2016-10-14 22:54] VITALS: BP 143/63
[2016-10-15 03:23] VITALS: BP 145/77
[2016-10-15 07:21] VITALS: BP 110/67
[2016-10-15 08:16] LABS: EOSINOPHIL (%) 0.8 % (0-5); EOSINOPHIL COUNT 0.1 K/uL (0-0.3); HEMATOCRIT 22.3 % (36.0-46.0); IMMATURE GRANULOCYTE (%) 0.7 % (0.0-0.7); IMMATURE GRANULOCYTE COUNT 0.1 K/uL; INSTRUMENT ABS NEUTROPHIL CT 6.6 K/uL; LYMPHOCYTE COUNT 0.5 K/uL (1.0-2.8); MCHC 30.9 G/DL (30.0-36.0); MEAN PLAT.VOLUME 10.5 uM^3 (9.5-12.4); MONOCYTE (%) 5.2 % (3-12); MONOCYTE COUNT 0.4 K/uL (0-0.8); NEUTROPHIL (%) 87.2 % (45-76); NEUTROPHIL COUNT 6.6 K/uL (1.8-6.4); PLATELET COUNT 108 K/uL (156-360); RBC DIS.WIDTH-CV 21.9 % (11.8-14.6); RBC DIS.WIDTH-SD 75.7 % (39-53); WHITE BLOOD COUNT 7.5 K/uL (4.1-10.2)
[2016-10-15 08:28] LABS: ANION GAP 10 MEQ/L (2-14); CHLORIDE 94 MEQ/L (99-109); GFR ESTIMATE (CALCULATED) 14 mL/min/; GLUCOSE 119 mg/dL (70-99); POTASSIUM 4.2 MEQ/L (3.7-5.4); SAMPLE HEMOLYSIS CHECK 0; SAMPLE ICTERIC CHECK 0; SAMPLE LIPEMIA CHECK 0; SODIUM 133 MEQ/L (136-147); UREA NITROGEN (BUN) 32 mg/dL (9-23)
[2016-10-15 08:31] LABS: VANCOMYCIN, TROUGH 14.8 MCG/ML (10-20)
[2016-10-15 17:06] VITALS: BP 120/61
[2016-10-15 18:53] VITALS: BP 130/61
[2016-10-15 23:29] VITALS: BP 129/61
[2016-10-16 03:20] VITALS: BP 137/66
[2016-10-16 07:11] VITALS: BP 127/62
[2016-10-16 11:23] LABS: EOSINOPHIL (%) 1.2 % (0-5); EOSINOPHIL COUNT 0.1 K/uL (0-0.3); HEMATOCRIT 27.2 % (36.0-46.0); IMMATURE GRANULOCYTE (%) 0.5 % (0.0-0.7); INSTRUMENT ABS NEUTROPHIL CT 6.4 K/uL; LYMPHOCYTE COUNT 0.7 K/uL (1.0-2.8); MCH 29.9 PG (29.0-34.0); MCV 93.5 FL (83-99); MONOCYTE (%) 7.8 % (3-12); MONOCYTE COUNT 0.6 K/uL (0-0.8); NEUTROPHIL (%) 81.3 % (45-76); NEUTROPHIL COUNT 6.4 K/uL (1.8-6.4); RBC DIS.WIDTH-CV 19.9 % (11.8-14.6); RBC DIS.WIDTH-SD 66.1 % (39-53); WHITE BLOOD COUNT 7.8 K/uL (4.1-10.2)
[2016-10-16 11:25] LABS: RED BLOOD COUNT 2.91 M/uL (3.80-5.20)
[2016-10-16 11:39] VITALS: BP 118/58
[2016-10-16 11:57] LABS: ANION GAP 12 MEQ/L (2-14); CHLORIDE 98 MEQ/L (99-109); POTASSIUM 4.6 MEQ/L (3.7-5.4); SAMPLE HEMOLYSIS CHECK 1; SAMPLE ICTERIC CHECK 0; SAMPLE LIPEMIA CHECK 0; SODIUM 135 MEQ/L (136-147)
[2016-10-16 12:03] LABS: GFR ESTIMATE (CALCULATED) 14 mL/min/; GLUCOSE 108 mg/dL (70-99); UREA NITROGEN (BUN) 23 mg/dL (9-23)
[2016-10-16 12:29] LABS: MEAN PLAT.VOLUME 10.7 uM^3 (9.5-12.4); PLAT.SUFFICIENCY DECREASED; PLATELET COUNT 113 K/uL (156-360)
[2016-10-16 16:05] VITALS: BP 114/59
[2016-10-16 19:09] VITALS: BP 117/74
[2016-10-16 23:58] VITALS: BP 133/63
[2016-10-17 07:00] VITALS: BP 106/54
[2016-10-17 08:45] LABS: EOSINOPHIL (%) 0.8 % (0-5); EOSINOPHIL COUNT 0.1 K/uL (0-0.3); HEMATOCRIT 26.1 % (36.0-46.0); IMMATURE GRANULOCYTE (%) 1.3 % (0.0-0.7); IMMATURE GRANULOCYTE COUNT 0.1 K/uL; INSTRUMENT ABS NEUTROPHIL CT 6.6 K/uL; LYMPHOCYTE COUNT 0.8 K/uL (1.0-2.8); MCH 30.4 PG (29.0-34.0); MCHC 32.2 G/DL (30.0-36.0); MCV 94.6 FL (83-99); MEAN PLAT.VOLUME 10.4 uM^3 (9.5-12.4); MONOCYTE (%) 8.6 % (3-12); MONOCYTE COUNT 0.7 K/uL (0-0.8); NEUTROPHIL (%) 79.6 % (45-76); NEUTROPHIL COUNT 6.6 K/uL (1.8-6.4); PLATELET COUNT 129 K/uL (156-360); RBC DIS.WIDTH-CV 19.8 % (11.8-14.6); RBC DIS.WIDTH-SD 66.6 % (39-53); RED BLOOD COUNT 2.76 M/uL (3.80-5.20); WHITE BLOOD COUNT 8.3 K/uL (4.1-10.2)
[2016-10-17 08:59] LABS: CHLORIDE 95 MEQ/L (99-109); GLUCOSE 103 mg/dL (70-99); POTASSIUM 4.5 MEQ/L (3.7-5.4); SAMPLE HEMOLYSIS CHECK 0; SAMPLE ICTERIC CHECK 0; SAMPLE LIPEMIA CHECK 0; SODIUM 132 MEQ/L (136-147); UREA NITROGEN (BUN) 33 mg/dL (9-23)
[2016-10-17 09:00] LABS: ANION GAP 12 MEQ/L (2-14)
[2016-10-17 09:05] LABS: GFR ESTIMATE (CALCULATED) 9 mL/min/; VANCOMYCIN, TROUGH 28.5 MCG/ML (10-20)
[2016-10-17 13:25] VITALS: BP 140/66
[2016-10-17 15:38] VITALS: BP 132/62; BP 132/625
[2016-10-17 20:04] VITALS: BP 131/70
[2016-10-17 23:50] VITALS: BP 104/57
[2016-10-18 03:57] VITALS: BP 119/57
[2016-10-18 06:54] VITALS: BP 114/59
[2016-10-18 10:00] LABS: HEMATOCRIT 26.6 % (36.0-46.0); MCH 29.7 PG (29.0-34.0); MCHC 31.2 G/DL (30.0-36.0); MCV 95.3 FL (83-99); MEAN PLAT.VOLUME 10.4 uM^3 (9.5-12.4); PLATELET COUNT 157 K/uL (156-360); RBC DIS.WIDTH-CV 19.9 % (11.8-14.6); RBC DIS.WIDTH-SD 66.9 % (39-53); RED BLOOD COUNT 2.79 M/uL (3.80-5.20); WHITE BLOOD COUNT 6.4 K/uL (4.1-10.2)
[2016-10-18 10:20] LABS: IRON 17 MCG/DL (35-150)
[2016-10-18 10:21] LABS: ANION GAP 12 MEQ/L (2-14); CHLORIDE 97 MEQ/L (99-109); GFR ESTIMATE (CALCULATED) 13 mL/min/; GLUCOSE 95 mg/dL (70-99); POTASSIUM 4.4 MEQ/L (3.7-5.4); SAMPLE HEMOLYSIS CHECK 0; SAMPLE ICTERIC CHECK 0; SAMPLE LIPEMIA CHECK 0; SODIUM 135 MEQ/L (136-147); UREA NITROGEN (BUN) 21 mg/dL (9-23)
[2016-10-18 11:31] LABS: EOSINOPHIL (%) 1.1 % (0-5); EOSINOPHIL COUNT 0.1 K/uL (0-0.3); IMMATURE GRANULOCYTE (%) 0.8 % (0.0-0.7); IMMATURE GRANULOCYTE COUNT 0.1 K/uL; INSTRUMENT ABS NEUTROPHIL CT 5.1 K/uL; LYMPHOCYTE COUNT 0.6 K/uL (1.0-2.8); MONOCYTE (%) 9.5 % (3-12); MONOCYTE COUNT 0.6 K/uL (0-0.8); NEUTROPHIL (%) 78.6 % (45-76); NEUTROPHIL COUNT 5.1 K/uL (1.8-6.4)
[2016-10-18 13:43] VITALS: BP 137/64
[2016-10-18 22:55] VITALS: BP 106/56
[2016-10-19 06:42] VITALS: BP 109/61
[2016-10-19] MEDS ORDERED: BENZONATATE100 MG PO (12:24)
[2016-10-19] MEDS ORDERED: AUGMENTIN875 MG PO (12:25)
[2016-10-19 12:51] LABS: EOSINOPHIL (%) 0.9 % (0-5); HEMATOCRIT 30.3 % (36.0-46.0); IMMATURE GRANULOCYTE (%) 0.4 % (0.0-0.7); INSTRUMENT ABS NEUTROPHIL CT 3.3 K/uL; LYMPHOCYTE COUNT 0.8 K/uL (1.0-2.8); MCH 29.3 PG (29.0-34.0); MCHC 30.7 G/DL (30.0-36.0); MCV 95.6 FL (83-99); MEAN PLAT.VOLUME 10.1 uM^3 (9.5-12.4); MONOCYTE (%) 9.2 % (3-12); MONOCYTE COUNT 0.4 K/uL (0-0.8); NEUTROPHIL (%) 71.5 % (45-76); NEUTROPHIL COUNT 3.3 K/uL (1.8-6.4); PLATELET COUNT 200 K/uL (156-360); RBC DIS.WIDTH-CV 20.2 % (11.8-14.6); RBC DIS.WIDTH-SD 70.3 % (39-53); RED BLOOD COUNT 3.17 M/uL (3.80-5.20); WHITE BLOOD COUNT 4.7 K/uL (4.1-10.2)
[2016-10-19 13:50] LABS: SAMPLE HEMOLYSIS CHECK 0; SAMPLE ICTERIC CHECK 0; SAMPLE LIPEMIA CHECK 0; VANCOMYCIN, TROUGH 11.3 MCG/ML (10-20)
[2016-10-19] MEDS ORDERED: AUGMENTIN500 MG PO (14:01)
[2016-10-19 14:09] LABS: ANION GAP 15 MEQ/L (2-14); CHLORIDE 97 MEQ/L (99-109); GFR ESTIMATE (CALCULATED) 14 mL/min/; GLUCOSE 80 mg/dL (70-99); POTASSIUM 4.3 MEQ/L (3.7-5.4); SODIUM 137 MEQ/L (136-147); UREA NITROGEN (BUN) 18 mg/dL (9-23)
[2016-10-19 16:17] VITALS: BP 115/56
== END 2016-10-19 18:24 | disposition home or self-care (01) | DRG 974 ==
LOC: EME 17:46 → EDOF 22:49 → 5EAST 22:49
PROVIDERS: Hospitalist; Internal Medicine; Internal Medicine Nephrology; Nurse Practitioner Family
PROC: 5A1D60Z (ICD-10-PCS; principal; 2016-10-13)
PROC: 30233N1 Transfusion of Nonautologous Red Blood Cells into Peripheral Vein, Percutaneous Approach (ICD-10-PCS; 2016-10-15)
DX: J18.9 Pneumonia, unspecified organism (principal); N18.6 End stage renal disease; J96.01 Acute respiratory failure with hypoxia; E87.70 Fluid overload, unspecified; I27.2 Other secondary pulmonary hypertension; I48.91 Unspecified atrial fibrillation; D69.6 Thrombocytopenia, unspecified; J44.9 Chronic obstructive pulmonary disease, unspecified; G89.4 Chronic pain syndrome; R50.9 Fever, unspecified; I10 Essential (primary) hypertension; I05.9 Rheumatic mitral valve disease, unspecified; R07.89 Other chest pain; B20 Human immunodeficiency virus [HIV] disease; R60.1 Generalized edema; Z99.2 Dependence on renal dialysis; Y95 Nosocomial condition; D64.9 Anemia, unspecified; D63.1 Anemia in chronic kidney disease; Q61.9 Cystic kidney disease, unspecified; Z88.6 Allergy status to analgesic agent; Z88.1 Allergy status to other antibiotic agents; I65.29 Occlusion and stenosis of unspecified carotid artery
CPT/HCPCS: 70498; 70551; 71020; 71275; 76770; 80048; 80069; 80202; 81003; 82565; 83540; 83605; 84466; 84484; 85014; 85018; 85025; 85027; 85049; 86706; 86900; 86901; 86920; 87040; 87070; 87205; 87340; 87449; 93005; 93880; 94640; 94640 76; 94799; 99202; 99281; 99285; J0456; J0692; J0696; J0881; J1200; J1644; J2543; J2997; J3370; J7050; P9016

== ENCOUNTER 2016-10-20 22:09 | Emergency (ER) | payer OTHER ==
[~2016-10-20] VITALS: Ht 160 cm; Wt 64.0 kg
[~2016-10-20 22:09] MED LIST changes: +BENZONATATE100 MG PO; +ROXICODONE5 MG PO
[2016-10-20 23:58] LABS: EOSINOPHIL (%) 0.4 % (0-5); HEMATOCRIT 30.2 % (36.0-46.0); IMMATURE GRANULOCYTE (%) 1.3 % (0.0-0.7); IMMATURE GRANULOCYTE COUNT 0.1 K/uL; INSTRUMENT ABS NEUTROPHIL CT 3.2 K/uL; MCH 29.5 PG (29.0-34.0); MCHC 31.5 G/DL (30.0-36.0); MCV 93.8 FL (83-99); MEAN PLAT.VOLUME 9.7 uM^3 (9.5-12.4); MONOCYTE (%) 8.9 % (3-12); MONOCYTE COUNT 0.4 K/uL (0-0.8); NEUTROPHIL (%) 68.4 % (45-76); NEUTROPHIL COUNT 3.2 K/uL (1.8-6.4); PLATELET COUNT 229 K/uL (156-360); RBC DIS.WIDTH-CV 19.7 % (11.8-14.6); RBC DIS.WIDTH-SD 66.6 % (39-53); RED BLOOD COUNT 3.22 M/uL (3.80-5.20); WHITE BLOOD COUNT 4.7 K/uL (4.1-10.2)
[2016-10-21 00:11] LABS: CHLORIDE 100 mEq/L (99-109); SODIUM 138 mEq/L (136-147)
[2016-10-21 00:15] LABS: ANION GAP 14 MEQ/L (2-14)
[2016-10-21 00:16] LABS: TOTAL BILIRUBIN 0.2 mg/dL (0.0-1.0)
[2016-10-21 00:17] LABS: ALKALINE PHOSPHATASE 176 IU/L (3-129); GFR ESTIMATE (CALCULATED) 8 mL/min/
[2016-10-21 00:19] LABS: TROP-I INTERPRETATION NEGATIVE; TROPONIN-I 0.08 ng/mL (0.0-0.30)
[2016-10-21 00:21] LABS: LIPASE 29 U/L (1.0-51.0)
[2016-10-21 00:22] LABS: GLUCOSE 114 mg/dL (70-99); UREA NITROGEN (BUN) 31 mg/dL (9-23)
[2016-10-21 02:01] VITALS: BP 180/103
== END 2016-10-21 02:03 | disposition home or self-care (01) ==
LOC: EME 22:09
PROVIDERS: Emergency Medicine
DX: J06.9 Acute upper respiratory infection, unspecified (principal); I12.0 Hypertensive chronic kidney disease with stage 5 chronic kidney disease or end stage renal disease; N18.6 End stage renal disease; Z99.2 Dependence on renal dialysis; R00.0 Tachycardia, unspecified; J45.909 Unspecified asthma, uncomplicated; G89.29 Other chronic pain; Z79.82 Long term (current) use of aspirin; Z87.891 Personal history of nicotine dependence
CPT/HCPCS: 71010; 80053; 83605; 83690; 84484; 85025; 87040; 93005; 99281; 99284

== ENCOUNTER 2016-11-01 16:13 | Emergency (ER) | payer OTHER ==
[~2016-11-01] VITALS: Ht 160 cm; Wt 64.5 kg
[2016-11-01 17:23] LABS: EOSINOPHIL (%) 0.6 % (0-5); HEMATOCRIT 31.9 % (36.0-46.0); IMMATURE GRANULOCYTE (%) 0.5 % (0.0-0.7); INSTRUMENT ABS NEUTROPHIL CT 3.9 K/uL; LYMPHOCYTE COUNT 1.4 K/uL (1.0-2.8); MCH 28.5 PG (29.0-34.0); MCV 91.9 FL (83-99); MEAN PLAT.VOLUME 9.1 uM^3 (9.5-12.4); MONOCYTE (%) 15.9 % (3-12); NEUTROPHIL (%) 60.6 % (45-76); NEUTROPHIL COUNT 3.9 K/uL (1.8-6.4); PLATELET COUNT 346 K/uL (156-360); RBC DIS.WIDTH-CV 19.2 % (11.8-14.6); RBC DIS.WIDTH-SD 63.5 % (39-53); RED BLOOD COUNT 3.47 M/uL (3.80-5.20); WHITE BLOOD COUNT 6.5 K/uL (4.1-10.2)
[2016-11-01 17:32] LABS: CHLORIDE 95 mEq/L (99-109); POTASSIUM 3.9 mEq/L (3.7-5.4); SODIUM 142 mEq/L (136-147)
[2016-11-01 17:34] LABS: GLUCOSE 97 mg/dL (70-99)
[2016-11-01 17:35] LABS: ANION GAP 11 MEQ/L (2-14)
[2016-11-01 17:38] LABS: GFR ESTIMATE (CALCULATED) 15 mL/min/
[2016-11-01 17:39] LABS: UREA NITROGEN (BUN) 14 mg/dL (9-23)
[2016-11-01] MEDS ORDERED: PERCOCET 5/31 TABLET PO (18:42)
[2016-11-01 19:09] VITALS: BP 190/95
== END 2016-11-01 19:12 | disposition home or self-care (01) ==
LOC: EME 16:13
PROVIDERS: Emergency Medicine
DX: R50.9 Fever, unspecified (principal); I13.2 Hypertensive heart and chronic kidney disease with heart failure and with stage 5 chronic kidney disease, or end stage renal disease; N18.6 End stage renal disease; I50.9 Heart failure, unspecified; Z99.2 Dependence on renal dialysis; Z87.442 Personal history of urinary calculi; Z21 Asymptomatic human immunodeficiency virus [HIV] infection status; Z88.6 Allergy status to analgesic agent; Z87.891 Personal history of nicotine dependence
CPT/HCPCS: 71010; 80048; 81003; 83605; 85025; 87040; 99281; 99285

== ENCOUNTER 2017-03-05 16:54 | Inpatient (IN) | payer OTHER ==
[~2017-03-05] VITALS: Ht 157.5 cm; Wt 74.0 kg
[2017-03-05 21:32] LABS: MCH 30.3 PG (29.0-34.0); MCHC 31.3 G/DL (30.0-36.0); MCV 96.6 FL (83-99); MEAN PLAT.VOLUME 9.8 uM^3 (9.5-12.4); PLATELET COUNT 267 K/uL (156-360); RBC DIS.WIDTH-CV 19.3 % (11.8-14.6); RBC DIS.WIDTH-SD 67.3 % (39-53); RED BLOOD COUNT 2.38 M/uL (3.80-5.20); WHITE BLOOD COUNT 4.3 K/uL (4.1-10.2)
[2017-03-05 21:41] LABS: CHLORIDE 93 mEq/L (99-109); POTASSIUM 4.2 mEq/L (3.7-5.4); SODIUM 138 mEq/L (136-147)
[2017-03-05 21:43] LABS: GLUCOSE 112 mg/dL (70-99)
[2017-03-05 21:44] LABS: ANION GAP 16 MEQ/L (2-14)
[2017-03-05 21:47] LABS: GFR ESTIMATE (CALCULATED) 18 mL/min/
[2017-03-05 21:48] LABS: UREA NITROGEN (BUN) 25 mg/dL (9-23)
[2017-03-05 21:55] LABS: TROP-I INTERPRETATION NEGATIVE; TROPONIN-I 0.06 ng/mL (0.0-0.30)
[2017-03-06 03:09] VITALS: BP 189/89
[2017-03-06] MEDS ORDERED: XANAX0.25 MG PO (03:33)
[2017-03-06] MEDS ORDERED: DESYREL100 MG PO (03:34)
[2017-03-06 04:30] VITALS: BP 154/78
[2017-03-06 05:50] VITALS: BP 145/74
[2017-03-06 08:58] VITALS: BP 188/91
[2017-03-06 10:26] LABS: EOSINOPHIL COUNT 0.2 K/uL (0-0.3); HEMATOCRIT 22.8 % (36.0-46.0); IMMATURE GRANULOCYTE (%) 0.8 % (0.0-0.7); LYMPHOCYTE COUNT 0.9 K/uL (1.0-2.8); MCH 31.6 PG (29.0-34.0); MCV 98.7 FL (83-99); MEAN PLAT.VOLUME 9.8 uM^3 (9.5-12.4); MONOCYTE (%) 17.1 % (3-12); MONOCYTE COUNT 0.6 K/uL (0-0.8); NEUTROPHIL (%) 53.2 % (45-76); PLATELET COUNT 268 K/uL (156-360); RBC DIS.WIDTH-CV 19.4 % (11.8-14.6); RBC DIS.WIDTH-SD 69.6 % (39-53); RED BLOOD COUNT 2.31 M/uL (3.80-5.20); WHITE BLOOD COUNT 3.7 K/uL (4.1-10.2)
[2017-03-06 10:46] LABS: ANION GAP 13 MEQ/L (2-14); CHLORIDE 95 MEQ/L (99-109); GFR ESTIMATE (CALCULATED) 14 mL/min/; GLUCOSE 145 mg/dL (70-99); POTASSIUM 4.8 MEQ/L (3.7-5.4); SAMPLE HEMOLYSIS CHECK 0; SAMPLE ICTERIC CHECK 0; SAMPLE LIPEMIA CHECK 0; SODIUM 140 MEQ/L (136-147)
[2017-03-06 10:51] LABS: UREA NITROGEN (BUN) 41 mg/dL (9-23)
[2017-03-06 14:08] LABS: ADD MIUA? YES; BILIRUBIN NEGATIVE; BLOOD SMALL; COLOR YELLOW ((YELLOW)); GLUCOSE (STRIP) 50; KETONES NEGATIVE; LEUKOCYTES NEGATIVE; NITRITE NEGATIVE; PROTEIN (STRIP) 100; SPECIFIC GRAVITY 1.008 (1.000-1.030); UROBILINOGEN 0.2 MG/DL (0.2-1.0)
[2017-03-06 14:16] LABS: BACTERIA 1+ /HPF; EPITHELIAL CELLS 4+ /HPF; MUCUS 1+ /LPF; UCUL ADDED? YES
[2017-03-06 16:28] VITALS: BP 158/72
[2017-03-06 20:12] VITALS: BP 147/80
[2017-03-07 00:36] VITALS: BP 159/79
[2017-03-07 05:52] VITALS: BP 124/67
[2017-03-07 06:55] VITALS: BP 129/64
[2017-03-07 08:38] LABS: EOSINOPHIL (%) 4.1 % (0-5); EOSINOPHIL COUNT 0.2 K/uL (0-0.3); HEMATOCRIT 21.7 % (36.0-46.0); IMMATURE GRANULOCYTE (%) 0.5 % (0.0-0.7); INSTRUMENT ABS NEUTROPHIL CT 2.3 K/uL; LYMPHOCYTE COUNT 0.7 K/uL (1.0-2.8); MCH 31.7 PG (29.0-34.0); MCHC 32.3 G/DL (30.0-36.0); MCV 98.2 FL (83-99); MEAN PLAT.VOLUME 9.8 uM^3 (9.5-12.4); MONOCYTE (%) 12.8 % (3-12); MONOCYTE COUNT 0.5 K/uL (0-0.8); NEUTROPHIL (%) 63.5 % (45-76); NEUTROPHIL COUNT 2.3 K/uL (1.8-6.4); PLATELET COUNT 244 K/uL (156-360); RBC DIS.WIDTH-CV 19.2 % (11.8-14.6); RBC DIS.WIDTH-SD 68.3 % (39-53); RED BLOOD COUNT 2.21 M/uL (3.80-5.20); WHITE BLOOD COUNT 3.7 K/uL (4.1-10.2)
[2017-03-07 08:54] LABS: ANION GAP 14 MEQ/L (2-14); CHLORIDE 92 MEQ/L (99-109); GFR ESTIMATE (CALCULATED) 10 mL/min/; GLUCOSE 150 mg/dL (70-99); POTASSIUM 5.1 MEQ/L (3.7-5.4); SAMPLE HEMOLYSIS CHECK 0; SAMPLE ICTERIC CHECK 0; SAMPLE LIPEMIA CHECK 0; SODIUM 135 MEQ/L (136-147); UREA NITROGEN (BUN) 57 mg/dL (9-23)
[2017-03-07 15:10] VITALS: BP 131/60
[2017-03-07 19:36] VITALS: BP 149/70
[2017-03-08 00:35] VITALS: BP 149/72
[2017-03-08 04:40] VITALS: BP 124/66
[2017-03-08 07:34] VITALS: BP 119/67
[2017-03-08 11:23] LABS: HEMATOCRIT 28.4 % (36.0-46.0); MCH 30.2 PG (29.0-34.0); MCV 97.6 FL (83-99); MEAN PLAT.VOLUME 9.2 uM^3 (9.5-12.4); PLATELET COUNT 215 K/uL (156-360); RBC DIS.WIDTH-CV 19.3 % (11.8-14.6); RBC DIS.WIDTH-SD 67.8 % (39-53); WHITE BLOOD COUNT 3.5 K/uL (4.1-10.2)
[2017-03-08 11:25] LABS: RED BLOOD COUNT 2.91 M/uL (3.80-5.20)
[2017-03-08 11:52] LABS: ANION GAP 14 MEQ/L (2-14); CHLORIDE 96 MEQ/L (99-109); GFR ESTIMATE (CALCULATED) 13 mL/min/; GLUCOSE 118 mg/dL (70-99); POTASSIUM 4.7 MEQ/L (3.7-5.4); SAMPLE HEMOLYSIS CHECK 0; SAMPLE ICTERIC CHECK 0; SAMPLE LIPEMIA CHECK 0; SODIUM 139 MEQ/L (136-147); UREA NITROGEN (BUN) 43 mg/dL (9-23)
[2017-03-08 15:30] VITALS: BP 138/71
[2017-03-08 23:54] VITALS: BP 160/83
[2017-03-09 08:22] VITALS: BP 160/88
[2017-03-09 23:38] VITALS: BP 135/67
[2017-03-10 07:47] VITALS: BP 127/71
[2017-03-10 08:38] LABS: HEMATOCRIT 27.2 % (36.0-46.0); MCH 31.6 PG (29.0-34.0); MCHC 32.7 G/DL (30.0-36.0); MCV 96.5 FL (83-99); MEAN PLAT.VOLUME 9.7 uM^3 (9.5-12.4); PLATELET COUNT 196 K/uL (156-360); RBC DIS.WIDTH-CV 17.8 % (11.8-14.6); RBC DIS.WIDTH-SD 62.4 % (39-53); RED BLOOD COUNT 2.82 M/uL (3.80-5.20); WHITE BLOOD COUNT 5.5 K/uL (4.1-10.2)
[2017-03-10 08:58] LABS: ANION GAP 16 MEQ/L (2-14); CHLORIDE 94 MEQ/L (99-109); MAGNESIUM 2.1 mg/dl (1.3-2.7); SAMPLE HEMOLYSIS CHECK 0; SAMPLE ICTERIC CHECK 0; SAMPLE LIPEMIA CHECK 0; SODIUM 133 MEQ/L (136-147)
[2017-03-10 09:07] LABS: GLUCOSE 117 mg/dL (70-99)
[2017-03-10 09:13] LABS: GFR ESTIMATE (CALCULATED) 8 mL/min/; POTASSIUM 5.7 MEQ/L (3.7-5.4); UREA NITROGEN (BUN) 78 mg/dL (9-23)
[2017-03-10 16:00] VITALS: BP 177/83
[2017-03-10 17:52] VITALS: BP 140/76
[2017-03-10 22:36] VITALS: BP 142/75
[2017-03-11 07:43] VITALS: BP 142/82
[2017-03-11] MEDS ORDERED: AZITHROMYCIN500 M1 PO (14:17)
[2017-03-11 16:37] VITALS: BP 167/66
== END 2017-03-11 17:20 | disposition home or self-care (01) | DRG 190 ==
LOC: EME 16:54 → ENRESERV 03-06 00:19 → 5EAST 03-06 00:22 → EDOF 03-06 00:22 → ENRESERV 03-06 00:24 → 5EAST 03-06 02:45
PROVIDERS: Hospitalist; Internal Medicine; Internal Medicine Nephrology; Student in an Organized Health Care Education/Training Program
DX: J44.0 Chronic obstructive pulmonary disease with (acute) lower respiratory infection (principal); J18.9 Pneumonia, unspecified organism; Y95 Nosocomial condition; J44.1 Chronic obstructive pulmonary disease with (acute) exacerbation; E87.5 Hyperkalemia; I16.0 Hypertensive urgency; I13.2 Hypertensive heart and chronic kidney disease with heart failure and with stage 5 chronic kidney disease, or end stage renal disease; I50.9 Heart failure, unspecified; N18.6 End stage renal disease; B20 Human immunodeficiency virus [HIV] disease; I27.20 Pulmonary hypertension, unspecified; I48.91 Unspecified atrial fibrillation; K21.9 Gastro-esophageal reflux disease without esophagitis; G43.909 Migraine, unspecified, not intractable, without status migrainosus; G89.4 Chronic pain syndrome; M25.559 Pain in unspecified hip; F17.210 Nicotine dependence, cigarettes, uncomplicated; E04.1 Nontoxic single thyroid nodule; D63.1 Anemia in chronic kidney disease; T81.89XA Other complications of procedures, not elsewhere classified, initial encounter; F41.9 Anxiety disorder, unspecified; M54.2 Cervicalgia; Z86.73 Personal history of transient ischemic attack (TIA), and cerebral infarction without residual deficits; Z99.2 Dependence on renal dialysis; Z91.19 Patient's noncompliance with other medical treatment and regimen; Z79.82 Long term (current) use of aspirin; Z88.1 Allergy status to other antibiotic agents
CPT/HCPCS: 70450; 71010; 71020; 71250; 80048; 80202; 81003; 82272; 83605; 83735; 84484; 85025; 85027; 86850; 86900; 86901; 86920; 87040; 87070; 87086; 87205; 93005; 94640; 94640 76; 99202; 99281; 99285; J1644; J1940; J2270; J2543; J3370; J7050; P9016

== ENCOUNTER 2017-07-29 10:45 | Inpatient (IN) | payer OTHER ==
[~2017-07-29] VITALS: Ht 160 cm; Wt 62.7 kg
[~2017-07-29 10:45] MED LIST changes: +ATIVAN0.5 MG PO; -ATIVAN1 MG PO; +AZITHROMYCIN500 M1 PO; +CATAPRES-TTS 31 EACH TD; +DESYREL100 MG PO; -HYDRALAZINE HC100 MG PO; +XANAX0.25 MG PO
[2017-07-29 13:15] LABS: BASOPHIL (%) 0.5 % (0-1); EOSINOPHIL (%) 1.1 % (0-5); EOSINOPHIL COUNT 0.1 K/uL (0-0.3); HEMATOCRIT 23.6 % (36.0-46.0); HEMOGLOBIN 7.5 G/DL (11.9-15.5); IMMATURE GRANULOCYTE (%) 0.3 % (0.0-0.7); LYMPHOCYTE (%) 18.8 % (15-42); LYMPHOCYTE COUNT 1.2 K/uL (1.0-2.8); MCH 29.5 PG (29.0-34.0); MCHC 31.8 G/DL (30.0-36.0); MCV 92.9 FL (83-99); MONOCYTE (%) 10.6 % (3-12); MONOCYTE COUNT 0.7 K/uL (0-0.8); NEUTROPHIL (%) 68.7 % (45-76); NEUTROPHIL COUNT 4.3 K/uL (1.8-6.4); NRBC (%) 0.3 /100 WBC (0-0); PLATELET COUNT 237 K/uL (156-360); RBC DIS.WIDTH-CV 17.2 % (11.8-14.6); RED BLOOD COUNT 2.54 M/uL (3.80-5.20); WHITE BLOOD COUNT 6.2 K/uL (4.1-10.2)
[2017-07-29 13:21] LABS: INTER. NORMALIZED RATIO 1.1
[2017-07-29 13:24] LABS: PTT 26.7 SEC (25-37)
[2017-07-29 13:32] LABS: CHLORIDE 94 mEq/L (99-109); SODIUM 139 mEq/L (136-147)
[2017-07-29 13:34] LABS: GLUCOSE 79 mg/dL (70-99)
[2017-07-29 13:37] LABS: GFR ESTIMATE (CALCULATED) 10 mL/min/
[2017-07-29 13:38] LABS: UREA NITROGEN (BUN) 39 mg/dL (9-23)
[2017-07-29 13:41] LABS: TROP-I INTERPRETATION NEGATIVE
[2017-07-29] MEDS ORDERED: SPIRIVA RESPIMAT4 GM IH (16:04)
[2017-07-29] MEDS ORDERED: ATORVASTATIN CA10 MG PO (16:06)
[2017-07-29] MEDS ORDERED: OXYCODONE HCL5 MG PO (16:08)
[2017-07-29] MEDS ORDERED: ETHYL CHLORI103.5 ML TP (16:10)
[2017-07-29] MEDS ORDERED: PEPCID20 MG PO (16:11)
[2017-07-29 19:56] VITALS: BP 221/98
[2017-07-29 20:40] LABS: TROP-I INTERPRETATION NEGATIVE
[2017-07-29 22:31] VITALS: BP 163/87
[2017-07-30] VITALS: BP 168/91
[2017-07-30 03:13] LABS: BASOPHIL (%) 0.4 % (0-1); EOSINOPHIL COUNT 0.1 K/uL (0-0.3); HEMATOCRIT 22.8 % (36.0-46.0); HEMOGLOBIN 7.3 G/DL (11.9-15.5); IMMATURE GRANULOCYTE (%) 0.4 % (0.0-0.7); LYMPHOCYTE (%) 16.4 % (15-42); LYMPHOCYTE COUNT 0.8 K/uL (1.0-2.8); MCH 30.2 PG (29.0-34.0); MCV 94.2 FL (83-99); MONOCYTE (%) 8.5 % (3-12); MONOCYTE COUNT 0.4 K/uL (0-0.8); NEUTROPHIL (%) 72.3 % (45-76); NEUTROPHIL COUNT 3.6 K/uL (1.8-6.4); PLATELET COUNT 215 K/uL (156-360); RBC DIS.WIDTH-CV 17.1 % (11.8-14.6); RBC DIS.WIDTH-SD 57.7 % (39-53); RED BLOOD COUNT 2.42 M/uL (3.80-5.20); WHITE BLOOD COUNT 4.9 K/uL (4.1-10.2)
[2017-07-30 03:24] LABS: CHLORIDE 95 mEq/L (99-109); POTASSIUM 4.4 mEq/L (3.7-5.4); SODIUM 139 mEq/L (136-147)
[2017-07-30 03:29] LABS: CREATININE 6.9 mg/dL (0.6-1.3); GFR ESTIMATE (CALCULATED) 8 mL/min/
[2017-07-30 03:30] LABS: UREA NITROGEN (BUN) 48 mg/dL (9-23)
[2017-07-30 03:33] LABS: GLUCOSE 104 mg/dL (70-99)
[2017-07-30 03:34] LABS: TROP-I INTERPRETATION NEGATIVE; TROPONIN-I 0.09 ng/mL (0.0-0.30)
[2017-07-30 04:00] VITALS: BP 145/84
[2017-07-30 07:38] VITALS: BP 158/83
[2017-07-30 11:47] VITALS: BP 158/78
[2017-07-30 19:19] VITALS: BP 162/74
[2017-07-30 23:44] VITALS: BP 155/75
[2017-07-31 03:55] VITALS: BP 157/77
[2017-07-31 07:17] VITALS: BP 142/77
[2017-07-31 13:20] LABS: HEMATOCRIT 24.8 % (36.0-46.0); HEMOGLOBIN 7.8 G/DL (11.9-15.5); MCHC 31.5 G/DL (30.0-36.0); MCV 95.4 FL (83-99); PLATELET COUNT 209 K/uL (156-360); RBC DIS.WIDTH-CV 17.7 % (11.8-14.6); RBC DIS.WIDTH-SD 59.7 % (39-53); WHITE BLOOD COUNT 3.7 K/uL (4.1-10.2)
[2017-07-31 15:36] VITALS: BP 141/79
[2017-07-31 15:58] VITALS: BP 140/72
[2017-07-31 20:00] VITALS: BP 125/74
[2017-08-01] VITALS: BP 143/83
[2017-08-01 04:00] VITALS: BP 126/69
[2017-08-01 08:12] LABS: BASOPHIL (%) 0.7 % (0-1); EOSINOPHIL (%) 4.4 % (0-5); EOSINOPHIL COUNT 0.2 K/uL (0-0.3); HEMATOCRIT 24.5 % (36.0-46.0); HEMOGLOBIN 7.6 G/DL (11.9-15.5); IMMATURE GRANULOCYTE (%) 0.5 % (0.0-0.7); LYMPHOCYTE (%) 15.3 % (15-42); LYMPHOCYTE COUNT 0.6 K/uL (1.0-2.8); MCH 29.5 PG (29.0-34.0); MONOCYTE (%) 8.5 % (3-12); MONOCYTE COUNT 0.4 K/uL (0-0.8); NEUTROPHIL (%) 70.6 % (45-76); NEUTROPHIL COUNT 2.9 K/uL (1.8-6.4); PLATELET COUNT 217 K/uL (156-360); RBC DIS.WIDTH-CV 17.4 % (11.8-14.6); RBC DIS.WIDTH-SD 60.1 % (39-53); RED BLOOD COUNT 2.58 M/uL (3.80-5.20); WHITE BLOOD COUNT 4.1 K/uL (4.1-10.2)
[2017-08-01 08:54] LABS: ALBUMIN 3.6 G/DL (3.2-4.8); CHLORIDE 96 MEQ/L (99-109); CREATININE 5.9 MG/DL (0.6-1.3); GFR ESTIMATE (CALCULATED) 10 mL/min/; GLUCOSE 103 mg/dL (70-99); PHOSPHORUS 4.7 mg/dL (2.5-4.9); SODIUM 135 MEQ/L (136-147); UREA NITROGEN (BUN) 36 mg/dL (9-23)
[2017-08-01 12:56] VITALS: BP 151/71
[2017-08-01 16:29] VITALS: BP 148/72
[2017-08-01 19:45] VITALS: BP 145/68
[2017-08-01 23:50] VITALS: BP 131/76
[2017-08-02 08:26] VITALS: BP 167/86
[2017-08-02] MEDS ORDERED: TIVICAY50 MG PO (10:43)
[2017-08-02] MEDS ORDERED: OXYCODONE-APAP1 EACH PO (10:43)
[2017-08-02] MEDS ORDERED: DOXYCYCLINE HY100 M3 PO (10:43)
[2017-08-02] MEDS ORDERED: CEFPODOXIME PR200 MG PO (10:45)
== END 2017-08-02 17:06 | disposition home or self-care (01) | DRG 193 ==
LOC: EME 10:45 → EDOF 15:37 → 5SOUTH 15:37 → ENRESERV 15:38 → 5SOUTH 19:31
PROVIDERS: Emergency Medicine; Internal Medicine; Internal Medicine Nephrology
PROC: 5A1D70Z Performance of Urinary Filtration, Intermittent, Less than 6 Hours Per Day (ICD-10-PCS; principal; 2017-07-30)
DX: J18.9 Pneumonia, unspecified organism (principal); N18.6 End stage renal disease; J44.0 Chronic obstructive pulmonary disease with (acute) lower respiratory infection; I13.2 Hypertensive heart and chronic kidney disease with heart failure and with stage 5 chronic kidney disease, or end stage renal disease; I16.0 Hypertensive urgency; I27.20 Pulmonary hypertension, unspecified; I48.91 Unspecified atrial fibrillation; G89.4 Chronic pain syndrome; D63.1 Anemia in chronic kidney disease; Z99.2 Dependence on renal dialysis; F17.200 Nicotine dependence, unspecified, uncomplicated; I50.9 Heart failure, unspecified; Z21 Asymptomatic human immunodeficiency virus [HIV] infection status; Z87.01 Personal history of pneumonia (recurrent); K21.9 Gastro-esophageal reflux disease without esophagitis; E04.1 Nontoxic single thyroid nodule; G43.909 Migraine, unspecified, not intractable, without status migrainosus; Z86.73 Personal history of transient ischemic attack (TIA), and cerebral infarction without residual deficits; Z87.442 Personal history of urinary calculi
CPT/HCPCS: 71045; 71250; 80048; 80069; 80202; 84484; 85025; 85027; 85610; 85730; 86850; 86900; 86901; 86920; 87040; 87070; 87205; 87449; 87502; 87641; 93005; 94640; 94640 76; 94760; 94799; 99202; 99281; 99285; J0360; J0881; J1200; J1644; J2270; J2405; J2543; J3370; J7050; P9016

== ENCOUNTER 2017-08-11 20:45 | Inpatient (IN) | payer OTHER ==
[~2017-08-11] VITALS: Ht 160 cm; Wt 63.0 kg
[~2017-08-11 20:45] MED LIST changes: +ATORVASTATIN CA10 MG PO; +CEFPODOXIME PR200 MG PO; +ETHYL CHLORI103.5 ML TP; +PEPCID20 MG PO
[2017-08-11 23:08] LABS: HEMATOCRIT 25.3 % (36.0-46.0); HEMOGLOBIN 8.1 G/DL (11.9-15.5); MCH 29.6 PG (29.0-34.0); MCV 92.3 FL (83-99); PLATELET COUNT 205 K/uL (156-360); RBC DIS.WIDTH-CV 17.6 % (11.8-14.6); RBC DIS.WIDTH-SD 58.6 % (39-53); RED BLOOD COUNT 2.74 M/uL (3.80-5.20); WHITE BLOOD COUNT 3.9 K/uL (4.1-10.2)
[2017-08-11 23:23] LABS: ALBUMIN 3.2 g/dL (3.2-4.8); CHLORIDE 93 mEq/L (99-109); POTASSIUM 3.6 mEq/L (3.7-5.4); SODIUM 139 mEq/L (136-147)
[2017-08-11 23:25] LABS: GLUCOSE 135 mg/dL (70-99)
[2017-08-11 23:26] LABS: TOTAL PROTEIN 7.5 g/dL (6.4-8.3)
[2017-08-11 23:27] LABS: TOTAL BILIRUBIN 0.5 mg/dL (0.0-1.0)
[2017-08-11 23:29] LABS: ALKALINE PHOSPHATASE 292 IU/L (3-129); CREATININE 4.8 mg/dL (0.6-1.3); GFR ESTIMATE (CALCULATED) 13 mL/min/
[2017-08-11 23:30] LABS: UREA NITROGEN (BUN) 22 mg/dL (9-23)
[2017-08-11 23:31] LABS: AST (GOT) 13 IU/L (2-34)
[2017-08-11 23:32] LABS: ALT (GPT) 4 IU/L (3-49)
[2017-08-11 23:34] LABS: TROP-I INTERPRETATION NEGATIVE; TROPONIN-I 0.11 ng/mL (0.0-0.30)
[2017-08-12 04:05] LABS: TROP-I INTERPRETATION NEGATIVE
[2017-08-12] MEDS ORDERED: LEVAQUIN750 MG PO (04:35)
[2017-08-12 12:05] VITALS: BP 118/70
[2017-08-12 16:22] LABS: TROP-I INTERPRETATION NEGATIVE
[2017-08-12 16:58] VITALS: BP 135/98
[2017-08-12 19:47] VITALS: BP 156/75
[2017-08-12 23:38] VITALS: BP 143/67
[2017-08-13 04:32] VITALS: BP 150/67
[2017-08-13 06:29] LABS: APPEARANCE TURBID ((CLEAR)); BILIRUBIN NEGATIVE; BLOOD SMALL; COLOR AMBER ((YELLOW)); GLUCOSE (STRIP) 50; KETONES NEGATIVE; LEUKOCYTES MODERATE; NITRITE NEGATIVE; PROTEIN (STRIP) 100; UROBILINOGEN 0.2 MG/DL (0.2-1.0)
[2017-08-13 07:22] LABS: EPITHELIAL CELLS 4+ /HPF; UCUL ADDED? YES
[2017-08-13 08:22] LABS: BASOPHIL (%) 0.5 % (0-1); EOSINOPHIL (%) 1.8 % (0-5); EOSINOPHIL COUNT 0.1 K/uL (0-0.3); HEMATOCRIT 22.8 % (36.0-46.0); HEMOGLOBIN 7.3 G/DL (11.9-15.5); IMMATURE GRANULOCYTE (%) 0.3 % (0.0-0.7); LYMPHOCYTE COUNT 0.7 K/uL (1.0-2.8); MCH 29.6 PG (29.0-34.0); MCV 92.3 FL (83-99); MONOCYTE (%) 13.5 % (3-12); MONOCYTE COUNT 0.5 K/uL (0-0.8); NEUTROPHIL (%) 64.9 % (45-76); NEUTROPHIL COUNT 2.5 K/uL (1.8-6.4); PLATELET COUNT 216 K/uL (156-360); RBC DIS.WIDTH-CV 17.3 % (11.8-14.6); RBC DIS.WIDTH-SD 58.6 % (39-53); RED BLOOD COUNT 2.47 M/uL (3.80-5.20); WHITE BLOOD COUNT 3.9 K/uL (4.1-10.2)
[2017-08-13 10:08] LABS: CHLORIDE 92 MEQ/L (99-109); GLUCOSE 102 mg/dL (70-99); POTASSIUM 3.7 MEQ/L (3.7-5.4); SODIUM 137 MEQ/L (136-147); UREA NITROGEN (BUN) 33 mg/dL (9-23); VANCOMYCIN, TROUGH 16.4 MCG/ML (10-20)
[2017-08-13 10:09] LABS: GFR ESTIMATE (CALCULATED) 8 mL/min/
[2017-08-13 13:18] VITALS: BP 147/77
[2017-08-13 15:38] VITALS: BP 120/66
[2017-08-13 19:27] VITALS: BP 124/64
[2017-08-13 23:53] VITALS: BP 128/67
[2017-08-14 05:13] VITALS: BP 128/64
[2017-08-14 05:31] LABS: BASOPHIL (%) 0.8 % (0-1); EOSINOPHIL (%) 2.4 % (0-5); EOSINOPHIL COUNT 0.1 K/uL (0-0.3); HEMATOCRIT 23.3 % (36.0-46.0); HEMOGLOBIN 7.1 G/DL (11.9-15.5); IMMATURE GRANULOCYTE (%) 0.4 % (0.0-0.7); LYMPHOCYTE (%) 26.5 % (15-42); LYMPHOCYTE COUNT 0.7 K/uL (1.0-2.8); MCH 29.1 PG (29.0-34.0); MCHC 30.5 G/DL (30.0-36.0); MCV 95.5 FL (83-99); MONOCYTE (%) 21.2 % (3-12); MONOCYTE COUNT 0.5 K/uL (0-0.8); NEUTROPHIL (%) 48.7 % (45-76); NEUTROPHIL COUNT 1.2 K/uL (1.8-6.4); PLATELET COUNT 210 K/uL (156-360); RBC DIS.WIDTH-CV 17.7 % (11.8-14.6); RBC DIS.WIDTH-SD 60.9 % (39-53); RED BLOOD COUNT 2.44 M/uL (3.80-5.20); WHITE BLOOD COUNT 2.5 K/uL (4.1-10.2)
[2017-08-14 05:57] LABS: GLUCOSE 103 mg/dL (70-99); POTASSIUM 4.2 MEQ/L (3.7-5.4); SODIUM 141 MEQ/L (136-147); UREA NITROGEN (BUN) 16 mg/dL (9-23)
[2017-08-14 05:58] LABS: CREATININE 4.3 MG/DL (0.6-1.3); GFR ESTIMATE (CALCULATED) 14 mL/min/
[2017-08-14 05:59] LABS: CHLORIDE 102 MEQ/L (99-109)
[2017-08-14 08:04] VITALS: BP 131/72
[2017-08-14 11:58] VITALS: BP 150/70
[2017-08-14 15:25] VITALS: BP 131/70
[2017-08-14 19:43] VITALS: BP 132/77
[2017-08-14 23:53] VITALS: BP 131/67
[2017-08-15 06:41] LABS: BASOPHIL (%) 0.6 % (0-1); EOSINOPHIL (%) 3.5 % (0-5); EOSINOPHIL COUNT 0.1 K/uL (0-0.3); HEMOGLOBIN 7.6 G/DL (11.9-15.5); IMMATURE GRANULOCYTE (%) 0.6 % (0.0-0.7); LYMPHOCYTE (%) 24.5 % (15-42); LYMPHOCYTE COUNT 0.8 K/uL (1.0-2.8); MCH 28.9 PG (29.0-34.0); MCHC 30.4 G/DL (30.0-36.0); MCV 95.1 FL (83-99); MONOCYTE (%) 11.3 % (3-12); MONOCYTE COUNT 0.4 K/uL (0-0.8); NEUTROPHIL (%) 59.5 % (45-76); NEUTROPHIL COUNT 1.9 K/uL (1.8-6.4); PLATELET COUNT 246 K/uL (156-360); RBC DIS.WIDTH-CV 17.6 % (11.8-14.6); RBC DIS.WIDTH-SD 60.8 % (39-53); RED BLOOD COUNT 2.63 M/uL (3.80-5.20); WHITE BLOOD COUNT 3.2 K/uL (4.1-10.2)
[2017-08-15 07:17] LABS: ALBUMIN 3.4 G/DL (3.2-4.8); CHLORIDE 96 MEQ/L (99-109); GFR ESTIMATE (CALCULATED) 10 mL/min/; GLUCOSE 114 mg/dL (70-99); PHOSPHORUS 4.7 mg/dL (2.5-4.9); POTASSIUM 4.4 MEQ/L (3.7-5.4); SODIUM 139 MEQ/L (136-147); VANCOMYCIN, TROUGH 13.7 MCG/ML (10-20)
[2017-08-15 07:20] LABS: CREATININE 5.9 MG/DL (0.6-1.3); UREA NITROGEN (BUN) 25 mg/dL (9-23)
[2017-08-15] MEDS ORDERED: LEVAQUIN250 MG PO (12:43)
[2017-08-15] MEDS ORDERED: LEVAQUIN500 MG PO (12:50)
[2017-08-15] MEDS ORDERED: PERCOCET 10/1 TABLET PO (13:35)
== END 2017-08-15 14:32 | disposition home or self-care (01) | DRG 193 ==
LOC: EME 20:45 → EDOF 08-12 07:58 → 3EAST 08-12 07:58 → ENRESERV 08-12 08:03 → 3EAST 08-12 11:33
PROVIDERS: Emergency Medicine; Internal Medicine; Internal Medicine Nephrology
PROC: 5A1D70Z Performance of Urinary Filtration, Intermittent, Less than 6 Hours Per Day (ICD-10-PCS; principal; 2017-08-13)
DX: J18.9 Pneumonia, unspecified organism (principal); J44.0 Chronic obstructive pulmonary disease with (acute) lower respiratory infection; Y95 Nosocomial condition; E87.2 Acidosis; I16.0 Hypertensive urgency; Z21 Asymptomatic human immunodeficiency virus [HIV] infection status; D63.8 Anemia in other chronic diseases classified elsewhere; D72.819 Decreased white blood cell count, unspecified; I13.2 Hypertensive heart and chronic kidney disease with heart failure and with stage 5 chronic kidney disease, or end stage renal disease; I50.9 Heart failure, unspecified; N18.6 End stage renal disease; E78.5 Hyperlipidemia, unspecified; G89.4 Chronic pain syndrome; I27.20 Pulmonary hypertension, unspecified; I48.91 Unspecified atrial fibrillation; K21.9 Gastro-esophageal reflux disease without esophagitis; G43.909 Migraine, unspecified, not intractable, without status migrainosus; F41.9 Anxiety disorder, unspecified; E66.9 Obesity, unspecified; Z86.73 Personal history of transient ischemic attack (TIA), and cerebral infarction without residual deficits; Z87.891 Personal history of nicotine dependence; Z99.2 Dependence on renal dialysis; Z79.82 Long term (current) use of aspirin; Z68.24 Body mass index [BMI] 24.0-24.9, adult
CPT/HCPCS: 71046; 80048; 80053; 80069; 80202; 81003; 83605; 83615; 84484; 85025; 85027; 87040; 87070; 87086; 87205; 87449; 87502; 87641; 93005; 93306; 94640; 99202; 99281; 99285; J0692; J0881; J1200; J1644; J1956; J2270; J3370; J7050

== ENCOUNTER 2017-08-19 13:15 | Inpatient (IN) | payer OTHER ==
[~2017-08-19] VITALS: Ht 160 cm; Wt 62.6 kg
[~2017-08-19 13:15] MED LIST changes: +LEVAQUIN250 MG PO; +LEVAQUIN750 MG PO
[2017-08-19 14:43] LABS: HEMATOCRIT 24.1 % (36.0-46.0); HEMOGLOBIN 7.7 G/DL (11.9-15.5); MCV 93.8 FL (83-99); PLATELET COUNT 279 K/uL (156-360); RBC DIS.WIDTH-CV 18.6 % (11.8-14.6); RBC DIS.WIDTH-SD 59.7 % (39-53); RED BLOOD COUNT 2.57 M/uL (3.80-5.20)
[2017-08-19 14:55] LABS: CHLORIDE 95 mEq/L (99-109); POTASSIUM 3.7 mEq/L (3.7-5.4); SODIUM 137 mEq/L (136-147)
[2017-08-19 14:57] LABS: GLUCOSE 130 mg/dL (70-99)
[2017-08-19 15:00] LABS: CREATININE 5.6 mg/dL (0.6-1.3); GFR ESTIMATE (CALCULATED) 10 mL/min/
[2017-08-19 15:01] LABS: UREA NITROGEN (BUN) 36 mg/dL (9-23)
[2017-08-19 15:05] LABS: TROP-I INTERPRETATION NEGATIVE; TROPONIN-I 0.05 ng/mL (0.0-0.30)
[2017-08-19 17:48] LABS: TROP-I INTERPRETATION NEGATIVE; TROPONIN-I 0.05 ng/mL (0.0-0.30)
[2017-08-19 21:31] VITALS: BP 185/85
[2017-08-19 23:15] VITALS: BP 160/85
[2017-08-20 03:54] VITALS: BP 133/65
[2017-08-20 06:54] LABS: HEMATOCRIT 27.3 % (36.0-46.0); HEMOGLOBIN 8.5 G/DL (11.9-15.5); MCH 29.5 PG (29.0-34.0); MCHC 31.1 G/DL (30.0-36.0); MCV 94.8 FL (83-99); PLATELET COUNT 320 K/uL (156-360); RBC DIS.WIDTH-CV 18.9 % (11.8-14.6); RBC DIS.WIDTH-SD 62.7 % (39-53); RED BLOOD COUNT 2.88 M/uL (3.80-5.20); WHITE BLOOD COUNT 3.6 K/uL (4.1-10.2)
[2017-08-20 07:16] LABS: TROP-I INTERPRETATION NEGATIVE; TROPONIN-I 0.04 ng/mL (0.0-0.30)
[2017-08-20 07:26] LABS: ALBUMIN 3.4 G/DL (3.2-4.8); ALKALINE PHOSPHATASE 315 IU/L (3-129); ALT (GPT) 8 IU/L (3-49); AST (GOT) 24 IU/L (2-34); CHLORIDE 91 MEQ/L (99-109); CREATININE 6.2 MG/DL (0.6-1.3); GFR ESTIMATE (CALCULATED) 9 mL/min/; SODIUM 134 MEQ/L (136-147); TOTAL BILIRUBIN 0.5 MG/DL (0.0-1.0); TOTAL PROTEIN 7.1 G/DL (6.4-8.3); UREA NITROGEN (BUN) 46 mg/dL (9-23)
[2017-08-20 07:28] LABS: GLUCOSE 223 mg/dL (70-99); POTASSIUM 5.8 MEQ/L (3.7-5.4)
[2017-08-20 08:06] VITALS: BP 172/87
[2017-08-20 10:00] VITALS: BP 187/89
[2017-08-20 16:17] VITALS: BP 151/90
[2017-08-20 16:49] LABS: CHLORIDE 95 mEq/L (99-109); SODIUM 139 mEq/L (136-147)
[2017-08-20 16:50] LABS: GLUCOSE 255 mg/dL (70-99); POTASSIUM 3.5 mEq/L (3.7-5.4)
[2017-08-20 16:54] LABS: GFR ESTIMATE (CALCULATED) 18 mL/min/
[2017-08-20 16:57] LABS: CREATININE 3.5 mg/dL (0.6-1.3); UREA NITROGEN (BUN) 19 mg/dL (9-23)
[2017-08-20 19:56] VITALS: BP 125/69
[2017-08-20 23:24] VITALS: BP 138/66
[2017-08-21 03:35] VITALS: BP 132/63
[2017-08-21 06:26] LABS: HEMATOCRIT 25.3 % (36.0-46.0); HEMOGLOBIN 7.8 G/DL (11.9-15.5); MCHC 30.8 G/DL (30.0-36.0); MCV 94.1 FL (83-99); NRBC (%) 0.5 /100 WBC (0-0); PLATELET COUNT 303 K/uL (156-360); RBC DIS.WIDTH-CV 19.3 % (11.8-14.6); RBC DIS.WIDTH-SD 62.4 % (39-53); RED BLOOD COUNT 2.69 M/uL (3.80-5.20); WHITE BLOOD COUNT 3.8 K/uL (4.1-10.2)
[2017-08-21 07:04] LABS: CHLORIDE 92 MEQ/L (99-109); GLUCOSE 182 mg/dL (70-99); POTASSIUM 4.2 MEQ/L (3.7-5.4); SODIUM 137 MEQ/L (136-147)
[2017-08-21 07:09] LABS: CREATININE 4.3 MG/DL (0.6-1.3); GFR ESTIMATE (CALCULATED) 14 mL/min/; UREA NITROGEN (BUN) 32 mg/dL (9-23)
[2017-08-21 07:15] VITALS: BP 151/75
[2017-08-21 11:09] VITALS: BP 133/65
[2017-08-21] MEDS ORDERED: LEVAQUIN250 MG PO (12:45)
== END 2017-08-21 17:03 | disposition home or self-care (01) | DRG 291 ==
LOC: EME 13:15 → EDOF 18:51 → 5EAST 18:51 → ENRESERV 18:58 → 5EAST 21:10
PROVIDERS: Internal Medicine; Physician Assistant; Physician Assistant Medical
PROC: 5A1D70Z Performance of Urinary Filtration, Intermittent, Less than 6 Hours Per Day (ICD-10-PCS; principal; 2017-08-20)
DX: I50.9 Heart failure, unspecified (principal); J18.9 Pneumonia, unspecified organism; N18.6 End stage renal disease; B20 Human immunodeficiency virus [HIV] disease; J44.1 Chronic obstructive pulmonary disease with (acute) exacerbation; J44.0 Chronic obstructive pulmonary disease with (acute) lower respiratory infection; I13.2 Hypertensive heart and chronic kidney disease with heart failure and with stage 5 chronic kidney disease, or end stage renal disease; G89.29 Other chronic pain; Z99.2 Dependence on renal dialysis; F41.9 Anxiety disorder, unspecified; I48.2 Chronic atrial fibrillation; L29.9 Pruritus, unspecified; K21.9 Gastro-esophageal reflux disease without esophagitis; E87.5 Hyperkalemia; D64.9 Anemia, unspecified; F17.210 Nicotine dependence, cigarettes, uncomplicated; Z79.82 Long term (current) use of aspirin; Z87.442 Personal history of urinary calculi; Z87.01 Personal history of pneumonia (recurrent); Z86.73 Personal history of transient ischemic attack (TIA), and cerebral infarction without residual deficits
CPT/HCPCS: 71046; 71250; 80048; 80048 91; 80053; 81003; 83605; 84484; 85027; 87040; 87070; 87205; 87502; 87651 90; 93005; 94640; 94640 76; 94799; 99202; 99281; 99285; J0610; J1200; J1644; J1940; J2270; J2405; J2920; J7050

== ENCOUNTER 2017-12-07 10:14 | Inpatient (IN) | payer OTHER ==
[~2017-12-07] VITALS: Ht 160 cm; Wt 61.0 kg
[2017-12-07 11:47] LABS: HEMATOCRIT 20.2 % (36.0-46.0); MCH 28.8 PG (29.0-34.0); MCHC 33.2 G/DL (30.0-36.0); MCV 86.7 FL (83-99); PLATELET COUNT 215 K/uL (156-360); RBC DIS.WIDTH-SD 59.6 % (39-53); RED BLOOD COUNT 2.33 M/uL (3.80-5.20); WHITE BLOOD COUNT 4.9 K/uL (4.1-10.2)
[2017-12-07 11:49] LABS: HEMOGLOBIN 6.7 G/DL (11.9-15.5)
[2017-12-07 11:55] LABS: CHLORIDE 88 mEq/L (99-109); POTASSIUM 5.1 mEq/L (3.7-5.4); SODIUM 130 mEq/L (136-147)
[2017-12-07 11:56] LABS: GLUCOSE 79 mg/dL (70-99)
[2017-12-07 12:00] LABS: GFR ESTIMATE (CALCULATED) 5 mL/min/
[2017-12-07 12:01] LABS: UREA NITROGEN (BUN) 65 mg/dL (9-23)
[2017-12-07 12:07] LABS: TROP-I INTERPRETATION NEGATIVE; TROPONIN-I 0.15 ng/mL (0.0-0.30)
[2017-12-07 12:08] LABS: QUANTITATIVE HCG 16.7 MIU/ML
[2017-12-07 18:40] LABS: TROP-I INTERPRETATION NEGATIVE; TROPONIN-I 0.19 ng/mL (0.0-0.30)
[2017-12-07 20:00] VITALS: BP 239/123
[2017-12-08] VITALS (8 sets, daily range): BP systolic 111–195; BP diastolic 60–107
[2017-12-08 00:37] LABS: HEMATOCRIT 27.1 % (36.0-46.0); HEMOGLOBIN 9.1 G/DL (11.9-15.5)
[2017-12-08 05:35] LABS: HEMATOCRIT 25.7 % (36.0-46.0); HEMOGLOBIN 8.3 G/DL (11.9-15.5); MCH 28.7 PG (29.0-34.0); MCHC 32.3 G/DL (30.0-36.0); MCV 88.9 FL (83-99); PLATELET COUNT 209 K/uL (156-360); RBC DIS.WIDTH-CV 17.9 % (11.8-14.6); RBC DIS.WIDTH-SD 57.9 % (39-53); WHITE BLOOD COUNT 3.5 K/uL (4.1-10.2)
[2017-12-08 05:41] LABS: RED BLOOD COUNT 2.89 M/uL (3.80-5.20)
[2017-12-08 05:50] LABS: TROP-I INTERPRETATION NEGATIVE
[2017-12-08 05:53] LABS: CHLORIDE 93 MEQ/L (99-109); GFR ESTIMATE (CALCULATED) 10 mL/min/; GLUCOSE 78 mg/dL (70-99); POTASSIUM 4.1 MEQ/L (3.7-5.4); SODIUM 135 MEQ/L (136-147)
[2017-12-08 06:07] LABS: CREATININE 5.6 MG/DL (0.6-1.3); UREA NITROGEN (BUN) 30 mg/dL (9-23)
[2017-12-09 03:48] VITALS: BP 126/80
[2017-12-09 07:00] VITALS: BP 134/87
== END 2017-12-09 10:56 | disposition home or self-care (01) | DRG 291 ==
LOC: EME 10:14 → EDOF 15:06 → 4EAST 15:06 → ENRESERV 15:13 → 4EAST 19:23
PROVIDERS: Emergency Medicine; Physician Assistant
PROC: 5A1D70Z Performance of Urinary Filtration, Intermittent, Less than 6 Hours Per Day (ICD-10-PCS; principal; 2017-12-07)
PROC: 30233N1 Transfusion of Nonautologous Red Blood Cells into Peripheral Vein, Percutaneous Approach (ICD-10-PCS; 2017-12-07)
DX: I13.2 Hypertensive heart and chronic kidney disease with heart failure and with stage 5 chronic kidney disease, or end stage renal disease (principal); I50.9 Heart failure, unspecified; N18.6 End stage renal disease; D63.1 Anemia in chronic kidney disease; I16.0 Hypertensive urgency; E87.1 Hypo-osmolality and hyponatremia; K21.9 Gastro-esophageal reflux disease without esophagitis; G43.909 Migraine, unspecified, not intractable, without status migrainosus; F41.9 Anxiety disorder, unspecified; J44.9 Chronic obstructive pulmonary disease, unspecified; I27.20 Pulmonary hypertension, unspecified; G89.29 Other chronic pain; E78.5 Hyperlipidemia, unspecified; D69.6 Thrombocytopenia, unspecified; Z21 Asymptomatic human immunodeficiency virus [HIV] infection status; R21 Rash and other nonspecific skin eruption; Z91.15 Patient's noncompliance with renal dialysis; Z79.891 Long term (current) use of opiate analgesic; Z79.82 Long term (current) use of aspirin; Z99.2 Dependence on renal dialysis; Z86.73 Personal history of transient ischemic attack (TIA), and cerebral infarction without residual deficits; Z87.891 Personal history of nicotine dependence
CPT/HCPCS: 71045; 80048; 81003; 82272; 84484; 84702; 85014; 85018; 85027; 86850; 86900; 86901; 86920; 87070; 87205; 87641; 93005; 94640; 94799; 99281; 99285; J0360; J0696; J1200; J1644; J2405; J3010; P9016

== ENCOUNTER 2018-01-04 10:52 | Day surgery (SDC) | payer OTHER ==
[~2018-01-04] VITALS: Ht 160 cm; Wt 64.0 kg
[~2018-01-04 10:52] MED LIST changes: +CATAPRES-TTS 21 EACH TD; -CATAPRES-TTS 31 EACH TD; +GABAPENTIN300 MG PO
== END 2018-01-04 14:47 | disposition home or self-care (01) ==
LOC: CATH 10:52
DX: T82.858A Stenosis of other vascular prosthetic devices, implants and grafts, initial encounter (principal); I12.9 Hypertensive chronic kidney disease with stage 1 through stage 4 chronic kidney disease, or unspecified chronic kidney disease; N18.6 End stage renal disease; Z99.2 Dependence on renal dialysis; J44.9 Chronic obstructive pulmonary disease, unspecified; Z87.11 Personal history of peptic ulcer disease; M19.90 Unspecified osteoarthritis, unspecified site; B20 Human immunodeficiency virus [HIV] disease; Z87.891 Personal history of nicotine dependence; Z82.49 Family history of ischemic heart disease and other diseases of the circulatory system; Z82.3 Family history of stroke; Z90.49 Acquired absence of other specified parts of digestive tract
CPT/HCPCS: 87641; C1725; C1769; C1894; J1644; J2250; J3010

== ENCOUNTER 2018-01-06 10:30 | Observation (INO) | payer OTHER ==
[2018-01-06] VITALS (7 sets, daily range): BP systolic 136–180; BP diastolic 73–95
[~2018-01-06] VITALS: Ht 160 cm; Wt 64.1 kg
[2018-01-06 11:50] LABS: HEMATOCRIT 22.3 % (36.0-46.0); HEMOGLOBIN 7.2 G/DL (11.9-15.5); MCH 29.6 PG (29.0-34.0); MCHC 32.3 G/DL (30.0-36.0); MCV 91.8 FL (83-99); PLATELET COUNT 227 K/uL (156-360); RBC DIS.WIDTH-CV 19.8 % (11.8-14.6); RBC DIS.WIDTH-SD 66.9 % (39-53); RED BLOOD COUNT 2.43 M/uL (3.80-5.20); WHITE BLOOD COUNT 4.2 K/uL (4.1-10.2)
[2018-01-06 11:58] LABS: CHLORIDE 92 mEq/L (99-109); POTASSIUM 3.4 mEq/L (3.7-5.4); SODIUM 137 mEq/L (136-147)
[2018-01-06 11:59] LABS: GLUCOSE 86 mg/dL (70-99)
[2018-01-06 12:03] LABS: CREATININE 5.4 mg/dL (0.6-1.3); GFR ESTIMATE (CALCULATED) 11 mL/min/
[2018-01-06 12:04] LABS: UREA NITROGEN (BUN) 35 mg/dL (9-23)
[2018-01-06 12:10] LABS: TROP-I INTERPRETATION NEGATIVE; TROPONIN-I 0.12 ng/mL (0.0-0.30)
[2018-01-06] MEDS ORDERED: METOPROLOL SUCC25 MG PO (13:52)
[2018-01-06] MEDS ORDERED: PERCOCET 10/1 TABLET PO (14:32)
[2018-01-06 15:03] LABS: HDL CHOLESTEROL 63 MG/DL (Desirable>=50); LDL CHOLESTEROL 85 mg/dL (Desirable<100); NON-HDL CHOLESTEROL 98 mg/dL (Desirable<160); TOTAL CHOLESTEROL 161 mg/dL (Desirable<200); TRIGLYCERIDES 64 MG/DL (Normal: <150)
[2018-01-06 20:46] LABS: TROP-I INTERPRETATION NEGATIVE; TROPONIN-I 0.11 ng/mL (0.0-0.30)
[2018-01-07 00:12] VITALS: BP 160/80
[2018-01-07 03:43] VITALS: BP 201/101
[2018-01-07 05:48] LABS: BASOPHIL (%) 0.5 % (0-1); EOSINOPHIL (%) 0.9 % (0-5); HEMOGLOBIN 7.7 G/DL (11.9-15.5); IMMATURE GRANULOCYTE (%) 0.2 % (0.0-0.7); LYMPHOCYTE (%) 23.5 % (15-42); MCH 29.3 PG (29.0-34.0); MCHC 32.1 G/DL (30.0-36.0); MCV 91.3 FL (83-99); MONOCYTE (%) 11.8 % (3-12); MONOCYTE COUNT 0.5 K/uL (0-0.8); NEUTROPHIL (%) 63.1 % (45-76); NEUTROPHIL COUNT 2.7 K/uL (1.8-6.4); PLATELET COUNT 220 K/uL (156-360); RBC DIS.WIDTH-CV 19.3 % (11.8-14.6); RBC DIS.WIDTH-SD 62.9 % (39-53); RED BLOOD COUNT 2.63 M/uL (3.80-5.20); WHITE BLOOD COUNT 4.3 K/uL (4.1-10.2)
[2018-01-07 06:13] LABS: ALBUMIN 3.1 G/DL (3.2-4.8); ALKALINE PHOSPHATASE 268 IU/L (3-129); ALT (GPT) 4 IU/L (3-49); AST (GOT) 10 IU/L (2-34); CHLORIDE 92 MEQ/L (99-109); CREATININE 6.3 MG/DL (0.6-1.3); GFR ESTIMATE (CALCULATED) 9 mL/min/; GLUCOSE 95 mg/dL (70-99); IRON 44 MCG/DL (35-150); POTASSIUM 3.5 MEQ/L (3.7-5.4); SODIUM 136 MEQ/L (136-147); TOTAL BILIRUBIN 0.5 MG/DL (0.0-1.0); TRANSFERRIN SATUR. 33 % (20-55); UREA NITROGEN (BUN) 45 mg/dL (9-23)
[2018-01-07 06:20] LABS: TROP-I INTERPRETATION NEGATIVE; TROPONIN-I 0.11 ng/mL (0.0-0.30)
[2018-01-07 07:33] VITALS: BP 175/90
[2018-01-07 10:59] LABS: QUANTITATIVE HCG 17.8 MIU/ML
[2018-01-07 11:14] VITALS: BP 179/101
[2018-01-07] MEDS ORDERED: NIFEDIPINE ER60 MG PO (12:33)
[2018-01-07] MEDS ORDERED: APRESOLINE50 MG PO (13:30)
== END 2018-01-07 19:22 | disposition home or self-care (01) ==
LOC: EME 10:30 → ENRESERV 13:05 → EDOF 13:08 → 4SOUTH 13:08 → EDOF 13:08 → ENRESERV 13:22 → 4SOUTH 15:25
PROVIDERS: Emergency Medicine; Internal Medicine
PROC: 30233N1 Transfusion of Nonautologous Red Blood Cells into Peripheral Vein, Percutaneous Approach (ICD-10-PCS; principal; 2018-01-06)
PROC: 5A1D70Z Performance of Urinary Filtration, Intermittent, Less than 6 Hours Per Day (ICD-10-PCS; 2018-01-07)
DX: R07.89 Other chest pain (principal); I16.1 Hypertensive emergency; I12.0 Hypertensive chronic kidney disease with stage 5 chronic kidney disease or end stage renal disease; N18.6 End stage renal disease; I27.20 Pulmonary hypertension, unspecified; R94.31 Abnormal electrocardiogram [ECG] [EKG]; E78.5 Hyperlipidemia, unspecified; Z21 Asymptomatic human immunodeficiency virus [HIV] infection status; Z86.19 Personal history of other infectious and parasitic diseases; J44.9 Chronic obstructive pulmonary disease, unspecified; Z91.14 Patient's other noncompliance with medication regimen; Z99.2 Dependence on renal dialysis; Z87.19 Personal history of other diseases of the digestive system; D64.9 Anemia, unspecified; Z90.49 Acquired absence of other specified parts of digestive tract; R79.1 Abnormal coagulation profile; E87.6 Hypokalemia; Z79.82 Long term (current) use of aspirin; Z87.891 Personal history of nicotine dependence; Z88.5 Allergy status to narcotic agent; Z88.1 Allergy status to other antibiotic agents; Z88.8 Allergy status to other drugs, medicaments and biological substances
CPT/HCPCS: 71045; 71275; 76856; 80048; 80053; 80061; 80306 90; 81003; 83540; 83880; 84466; 84484; 84702; 85025; 85027; 85379; 86850; 86900; 86901; 86920; 93005; 99281; 99285; G0257; G0378; J2270; P9016; S0028